=== PATIENT | female | born 1945 | race African-American/Black ===

== ENCOUNTER 2019-09-09 10:10 | Outpatient (CLI) | payer MEDICARE, SELFPAY ==
--- NOTE | ~2019-09-09 | XR_ITS ---
XR knee LT 2V 09/09/2019 10:30 Indication: Left knee pain and edema Procedure: 2 views left knee Comparison: No prior studies for comparison. Findings: There is a left total knee arthroplasty. Moderate joint effusion. No acute fracture or trau matic malalignment. Prosthesis well seated. Impression: 1: No acute fracture. 2: Moderate joint effusion. Reviewed, dictated and finalized at location A. Impression: 1: No acute fracture. 2: Moderate joint effusion.
--- NOTE | ~2019-09-09 | US_ITS ---
EXAMINATION: US venous doppler [facility] DATE: 09/09/2019 10:49 INDICATION: Left lower limb pain and swelling TECHNIQUE: Grayscale ultrasound images without and with compression and Doppler ultrasound images of the left lower extremity veins were obtained. COMPARISON: None. FINDINGS: There is noncompressible deep venous thrombosis in both of the paired left gastrocnemius veins. The v isualized portions of left common femoral vein, profunda (deep) femoral vein, femoral vein, popliteal vein, peroneal veins, posterior tibial veins, and greater saphenous vein outflow are patent. IMPRESSION: 1. [id number] deep venous thrombosis in both of the paired left gastrocnemius veins at the left calf. Reviewed, dictated and finalized at location A. IMPRESSION: 1. [id number] deep venous thrombosis in both of the paired left gastrocnem ius veins at the left calf.
== END 2019-09-09 10:11 | disposition home or self-care (01) ==
LOC: ANHIMG 10:14
PROVIDERS: PCP Family Medicine; Visit Provider Nurse Practitioner Family
DX: R60.9 Edema, unspecified (principal); R09.89 Other specified symptoms and signs involving the circulatory and respiratory systems; M25.562 Pain in left knee; M25.462 Effusion, left knee; I82.463 Acute embolism and thrombosis of calf muscular vein, bilateral
CPT/HCPCS: 73560; 93971

== ENCOUNTER 2019-09-11 23:26 | Emergency (ER) | payer MEDICARE, SELFPAY ==
[2019-09-11 23:30] VITALS: BP 177/83; PULSE 72; RESP 18; TEMP 36; O2SAT 100
--- NOTE | 2019-09-11 23:31 | ED.EXTPRO ---
HPI - Extremity Problem General Chief complaint: Extremity Problem,Nontraumatic Stated complaint: DVT/L knee pain Time Seen by Provider: 09/11/19 23:31 Source: patient Mode of arrival: ambulatory Limitations: no limitations History of Present Illness HPI Narrative: Patient is a 74-year-old female who presents for evaluation of leg swelling and pain. Patient reports that she has had a 5-day history of leg swelling, pain and warmth, was seen in her primary care physician's office by the nurse practitioner, had a DVT study which was positive for a DVT in the left gastrocnemius. Patient was started on anticoagulation by her primary care physician and has been taking this as prescribed. She states she was told if the leg continue to be warm, and red that she should come to the emergency department. Patient denies any cough, chest pain, shortness of breath or hemoptysis. She states she otherwise is feeling well. No wounds or numbness in the leg. She is ambulatory without difficulty. Related Data Allergies Allergy/AdvReac Type Severity Reaction Status Date / Time No Known Allergies Allergy Unknown Unverified 09/09/19 08:51 Review of Systems Review of Systems: Narrative: CONSTITUTIONAL: Denies fever CARDIOVASCULAR: Denies chest pain RESPIRATORY: Denies cough or dyspnea. GASTROINTESTINAL: Denies abdominal pain SKIN: Denies rash MUSCULOSKELETAL: Denies back pain NEUROLOGIC: Denies headache PMFSH Past Medical History Medical History (Updated 09/11/19 @ 23:51 by Amy Wellington MD) DVT (deep venous thrombosis) Hx of pulmonary embolus (~2013) Hyperlipidemia SERGIO on CPAP (~2012) Vital capacity reduced Surgical History Surgical History History of left knee replacement (~2008) Family History Family History (Updated 05/14/18 @ 08:04 by DOCTOR UNKNOWN) Father Acute myocardial infarction, Onset Age: 80 Patient's father is Family history of cardiovascular disease, Onset Age: 81 Sibling Patient's sister is in good health Patient's brother is in good health Mother Family history of Alzheimer's disease, Onset Age: 90 Social History Social History Smoking status: Never smoker Second hand tobacco smoke exposure: No Alcohol intake: never Exam Narrative: Exam Narrative: GENERAL: Awake, alert, conversant HEAD: Normocephalic, atraumatic. EYES: PERRLA and EOMI. ENT: Nares clear, no rhinorrhea or epistaxis. Mucous membranes moist. NECK: Supple. CHEST: No respiratory distress, breathing even and non labored HEART: Regular rate, sinus rhythm ABDOMEN:Non distended, non tender EXTREMITIES: Normal range of motion. Mild, nonpitting left calf edema. Tenderness to palpation behind the knee, effusion over the left knee joint. Mild warmth, no erythema, full flexion and extension without limitation. DP pulse is 1+, posterior tibialis pulses 2+. Capillary refill less than 3 seconds in the toes. SKIN: Warm, dry, no rash. NEURO:No focal deficits. Alert and oriented x3 Course Vital Signs Vital signs: Vital Signs Temperature 36.0 C L 09/11/19 23:30 Pulse Rate 72 09/11/19 23:30 Respiratory Rate 18 09/11/19 23:30 Blood Pressure 177/83 H 09/11/19 23:30 Pulse Oximetry 100 09/11/19 23:30 Temperature 36.0 C L 09/11/19 23:30 Pulse Rate 72 09/11/19 23:30 Respiratory Rate 18 09/11/19 23:30 Blood Pressure 177/83 H 09/11/19 23:30 Pulse Oximetry 100 09/11/19 23:30 MDM - Extremity (Nontraumatic) MDM Narrative Medical decision making narrative: Patient with a known history of DVT, has very recently started anticoagulation. No other concerning features such as chest pain, hemoptysis or shortness of breath. Patient has palpable pulses, her extremity is warm and well-perfused. She has no marked erythema, there is mild warmth overlying the left anterior kne
== END 2019-09-12 00:25 | disposition home or self-care (01) ==
PROVIDERS: Emergency Provider Emergency Medicine; PCP Family Medicine
DX: I82.462 Acute embolism and thrombosis of left calf muscular vein (principal); Z86.718 Personal history of other venous thrombosis and embolism; Z86.711 Personal history of pulmonary embolism; E78.5 Hyperlipidemia, unspecified; G47.33 Obstructive sleep apnea (adult) (pediatric); Z96.652 Presence of left artificial knee joint
CPT/HCPCS: 99281

== ENCOUNTER 2020-01-04 08:14 | Outpatient (CLI) | payer MEDICARE, SELFPAY ==
--- NOTE | ~2020-01-04 | US_ITS ---
EXAMINATION: US venous doppler [facility] EXAM DATE: 01/04/2020 08:45 INDICATION: R60.9 Edema, unspecified, DVT of lower extremity. TECHNIQUE: Multiple grayscale, color flow and Doppler images of the left lower extremity deep venous system obtained and reviewed. Comparison is made to prior examination from 09/09/2019. FINDINGS: LEFT SIDE Common femoral: -------- Normal. Profunda femoral: ------- Normal. Femoral: Normal. Popliteal: Normal. Posterior tibial: --------- Normal. Peroneal: Normal. Gastrocnemius: Paired, both noncompressible, thrombosed. Soleus: Not visualized. Greater saphenous: ----- Normal. Lesser saphenous: ------ Not visualized. There is no significant interval change. IMPRESSION: 1. Persistent left gastrocnemius DVT. Reviewed, dictated and finalized at location A.
== END 2020-01-04 08:15 | disposition home or self-care (01) ==
PROVIDERS: PCP Family Medicine; Visit Provider Family Medicine
DX: R60.9 Edema, unspecified (principal); I82.462 Acute embolism and thrombosis of left calf muscular vein
CPT/HCPCS: 93971

== ENCOUNTER 2020-01-12 15:31 | Emergency (ER) | payer MEDICARE, SELFPAY ==
--- NOTE | ~2020-01-12 | XR_ITS ---
EXAMINATION: XR knee LT 3V DATE: 01/12/2020 16:02 INDICATION: Left knee pain. TECHNIQUE: 3 views of left knee were obtained. COMPARISON: Left knee radiograph 09/09/2019 FINDINGS: There is a total left knee arthroplasty with patellar resurfacing in near-anatomic alignmen t. No fracture. No periprosthetic lucency to suggest loosening or infection. No knee joint effusion. IMPRESSION: 1. Total left knee arthroplasty in near-anatomic alignment. Reviewed, dictated and finalized at location A. OUT WORKER
[2020-01-12 15:33] VITALS: BP 165/81; PULSE 87; RESP 15; TEMP 36.7; O2SAT 100
--- NOTE | 2020-01-12 15:50 | ED.GENADULT ---
HPI - General Adult General Chief complaint: Extremity Injury, Lower Stated complaint: dvt Time Seen by Provider: 01/12/20 15:40 Source: patient History of Present Illness HPI narrative: Patient is a 74 y/o female complaining of left knee since yesterday. She describes her pain as sharp and rates it as 7-8/10. She took Tramadol, which helps her pain. She states that she was diagnosed with DVT in September. She was on Eliquis and it was recently changed to Xarelto. She states the [place] last week still shows she has persistent DVT. She denies any chest pain or SOB. Related Data Allergies Allergy/AdvReac Type Severity Reaction Status Date / Time No Known Allergies Allergy Unknown Unverified 09/09/19 08:51 Review of Systems Constitutional: Constitutional: Denies chills, Denies fever(s), Denies headache(s) and Denies weakness Eyes: Eyes: Denies blurry vision ENT: Denies headache(s) and Denies neck pain Cardiovascular: Cardiovascular: Denies chest pain and Denies dyspnea Respiratory: Respiratory: Denies cough and Denies dyspnea Gastrointestinal: Gastrointestinal: Denies abdominal pain, Denies diarrhea, Denies nausea and Denies vomiting Genitourinary: Genitourinary: Denies hematuria and Denies dysuria Musculoskeletal: Musculoskeletal: Denies back pain, Reports arthralgias (+left knee pain) and Denies neck pain Neurologic: Denies headache(s) and Denies weakness PMFSH Past Medical History Medical History DVT (deep venous thrombosis) Hx of pulmonary embolus (~2013) Hyperlipidemia SERGIO on CPAP (~2012) Vital capacity reduced Surgical History Surgical History History of left knee replacement (~2008) Family History Family History Father Acute myocardial infarction, Onset Age: 80 Patient's father is Family history of cardiovascular disease, Onset Age: 81 Sibling Patient's sister is in good health Patient's brother is in good health Mother Family history of Alzheimer's disease, Onset Age: 90 Social History Social History Smoking status: Never smoker Second hand tobacco smoke exposure: No Alcohol intake: never Gender identity (if verbalized by the patient): Female Exam Const: General: no acute distress and well developed Orientation/consciousness: oriented to person, oriented to place, oriented to time and patient oriented x3 HENMT: Head: normocephalic Ears: external ears normal General nose exam: Normal external nose present Eyes: General: appearance normal, both eyes and all related structures Conjunctivae: conjunctivae normal Neck: Neck: normal visual inspection and full ROM Chest: Chest palpation & inspection: normal inspection of the chest and no tenderness Resp: Effort & Inspection: normal respiratory effort Auscultation: clear to auscultation bilaterally Cardio: Rate: regular rate Rhythm: regular rhythm GI: GI Palp: No abdominal tenderness and Yes Soft to palpation Skin: General skin exam: normal color and turgor normal Neuro: General: oriented to person, oriented to place, oriented to time and patient oriented x3 Cognition (Neuro): normal cognition Extrem: General: normal to inspection, full ROM and no pedal edema Psych: Appearance: grossly normal Mental Status: mental status grossly normal Affect: normal affect Course Consultations Consultation #1: Discussed with Dr. Hernandez (PCP), who agrees with plan for discharge and will follow up. Date: 01/12/20 Time: 16:39 Vital Signs Vital signs: Vital Signs Temperature 36.7 C 01/12/20 15:33 Pulse Rate 87 01/12/20 15:33 Respiratory Rate 15 01/12/20 15:33 Blood Pressure 165/81 H 01/12/20 15:33 Pulse Oximetry 100 01/12/20 15:33 Temperature 36.7 C 01/12/20 15:33 Pulse Rate 85
[2020-01-12 16:20] LABS: Basophils Percent Auto 0.6 % (0.2-1.2); Eosinophils Absolute Auto 0.2 K/mm3 (0-0.3); Eosinophils Percent Auto 2.9 % (0-4.4); Hematocrit 38.4 % (37.0-47.0); Hemoglobin 12.5 g/dL (12.0-15.0); Immature Granulocyte Absolute 0.01 K/mm3 (0.00-0.031); Immature Granulocyte Percent A 0.2 % (0-0.5); Lymphocytes Absolute Auto 2.24 K/mm3 (0.9-3.2); Lymphocytes Percent Auto 43.7 % (18.3-44.2); Mean Corpuscular HGB Conc 32.6 g/dl (32-36); Mean Corpuscular Hemoglobin 26.6 pg (26-34); Mean Corpuscular Volume 81.7 fl (80-100); Mean Platelet Volume 9.5 fl (7.4-10.4); Monocytes Absolute Auto 0.5 K/mm3 (0.1-0.6); Monocytes Percent Auto 9.4 % (2.6-8.5); Neutrophils Absolute Auto 2.2 K/mm3 (1.3-6.7); Neutrophils Percent Auto 43.2 % (45.5-73.1); Platelet Count Result 285 k/mm3 (150-375); Red Cell Distribution Width 13.7 % (11.5-14.5); White Blood Count 5.1 K/mm3 (4.5-10.0)
[2020-01-12 16:30] LABS: Prothrombin Time 13.7 Seconds (11.1-14.7)
[2020-01-12 16:31] LABS: Anion Gap 6 mmol/L (8-16); Blood Urea Nitrogen 13 mg/dL (7-17); Calcium 9.3 mg/dL (8.4-10.2); Carbon Dioxide 28 mmol/L (22-30); Chloride 107 mmol/L (98-107); Estimated CRCL calculation 62 ml/min; Estimated Glomerular Filt Rate > 60; Glucose 77 mg/dL (65-105); Sodium 141 mmol/L (137-145)
[2020-01-12 17:22] VITALS: BP 158/76; PULSE 85; RESP 18; O2SAT 98
== END 2020-01-12 17:24 | disposition home or self-care (01) ==
PROVIDERS: Emergency Provider Emergency Medicine; PCP Family Medicine
DX: M25.562 Pain in left knee (principal); I82.402 Acute embolism and thrombosis of unspecified deep veins of left lower extremity; G47.33 Obstructive sleep apnea (adult) (pediatric); Z86.711 Personal history of pulmonary embolism; Z96.652 Presence of left artificial knee joint; Z79.01 Long term (current) use of anticoagulants
CPT/HCPCS: 36415; 73562; 80048; 85025; 85610; 85730; 99283

== ENCOUNTER 2020-02-10 14:18 | Outpatient (CLI) | payer MEDICARE, SELFPAY ==
--- NOTE | ~2020-02-10 | US_ITS ---
EXAMINATION:US venous doppler LE LT INDICATION:DVT of the left lower extremity TECHNIQUE: Multiple grayscale, color flow and Doppler images of the left lower extremity deep venous systems were obtained and reviewed. COMPARISON: Comparison to multiple prior studies sequentially, with oldest reviewed study dated 09/08. FINDINGS: The common femoral, superficial femoral and popliteal veins demonstrate normal respiratory variation, augmentation and compressibility. Color flow is also seen within the posterior tibial, pe roneal, greater saphenous and profunda veins. There is deep venous thrombosis of the soleus vein. The re is reflux in the posterior tibial vein. IMPRESSION: 1: Deep venous thrombosis in the left soleus vein. Reviewed, dictated and finalized at location B. RACTOR BROOMCORN THRESHING
== END 2020-02-10 14:19 | disposition home or self-care (01) ==
PROVIDERS: PCP Family Medicine; Visit Provider Internal Medicine Hematology & Oncology
DX: I82.4Z2 Acute embolism and thrombosis of unspecified deep veins of left distal lower extremity (principal)
CPT/HCPCS: 93971

== ENCOUNTER 2020-05-17 10:39 | Outpatient (CLI) | payer MEDICARE, SELFPAY ==
--- NOTE | ~2020-05-17 | US_ITS ---
EXAMINATION: US venous doppler [facility] DATE: 05/17/2020 11:06 INDICATION: Acute deep vein thrombosis of distal vein of left lower extremity. TECHNIQUE: Grayscale ultrasound images without and with compression and Doppler ultrasound images of the left lower extremity veins were obtained. COMPARISON: Ultrasound 02/10/2020 FINDINGS: The visualized portions of left common femoral vein, profunda (deep) femoral vein, femoral vein, popl iteal vein, peroneal veins, posterior tibial veins, and greater saphenous vein outflow are patent. Th ere is thrombus in left soleus vein. IMPRESSION: 1. Persistent deep vein thrombosis involving left soleus vein. Reviewed, dictated and finalized at location A. DEVELOPER
== END 2020-05-17 10:40 | disposition home or self-care (01) ==
PROVIDERS: PCP Family Medicine; Visit Provider Internal Medicine Hematology & Oncology
DX: I82.4Z2 Acute embolism and thrombosis of unspecified deep veins of left distal lower extremity (principal)
CPT/HCPCS: 93971

== ENCOUNTER 2020-05-26 13:28 | Outpatient (CLI) | payer MEDICARE, SELFPAY ==
--- NOTE | ~2020-05-26 | DEXA_ITS ---
Bone Density Report Name: Bethany Carnes Age: 74 Sex: Female Ethnicity: White Date of : 1945 Indication: postmenopausal; height loss; Referring Provider: Dick Hernandez Study: Bone densitometry was performed. Exam Date: May 26, 2020 Accession number: [id number] Bone Density: Region BMD T-score Z-score Classification AP Spine (L1-L4) 1.239 1.7 4.0 Normal Femoral Neck (Left) 0.826 -0.2 1.8 Normal Total Hip (Left) 0.849 -0.8 0.9 Normal Total Hip Bilateral Avg 0.850 -0.8 0.9 Normal Femoral Neck (Right) 0.800 -0.4 1.5 Normal Total Hip (Right) 0.850 -0.8 0.9 Normal World Health Organization criteria for BMD impression classify patients as: Normal (T-score at or above -1.0), Osteopenia (T-score between -1.0 and -2.5), or Osteoporosis (T-score at or below -2.5). 10-year Fracture Risk: FRAX not reported because: All T-scores for Spine Total, Hip Total, Femoral Neck at or above -1.0 Clinical Information Provided by Patient: Has used the following medications: Calcium Patient maximum height was 71 Menopause Age: 35 No regular weight bearing exercise Does not regularly consume dairy products Drinks caffeinated beverages Onset of menses at age 16 Number of children 4 Impression: The patient has normal bone mass. Discussion: BONE DENSITY IS ABOVE THE MINIMUM DESIRABLE LEVEL AT ALL SKELETAL SITES TESTED. This patient?s bone mineral density is above the minimum desirable level (T-score -1.0 or better) at all sites measured. The patient should follow a healthful lifestyle (good nutrition with adequate calcium and vitamin D, and appropriate weight-bearing exercise). Follow-Up: Consider repeating this study in 5 years or sooner if there is some new clinical indication. Reported by: LORETTA on 05/26/2020 2:01:00 PM. Reviewed, dictated and finalized at location AGhazala HOLLAND
== END 2020-05-26 13:29 | disposition home or self-care (01) ==
PROVIDERS: PCP Family Medicine; Visit Provider Family Medicine
DX: Z78.0 Asymptomatic menopausal state (principal)
CPT/HCPCS: 77080

== ENCOUNTER 2020-09-15 14:21 | Outpatient (CLI) | payer MEDICARE, SELFPAY ==
--- NOTE | ~2020-09-15 | CT_ITS ---
EXAMINATION: CT abdomen pelvis w con DATE: 09/15/2020 15:20 INDICATION: Left lower quadrant abdominal pain TECHNIQUE: Computed tomography (CT) of the abdomen and pelvis was performed with 100 cc Omnipaque 350 intravenous contrast. Automated exposure control and iterative reconstruction technique were employe d. Exam dose: 646.49 mGy-cm total exam DLP. COMPARISON: None. FINDINGS: Mild bilateral dependent lower lobe atelectasis. Discoid atelectasis or scarring at the med ial segment of the middle lobe. No pericardial or pleural effusion. 6.5 mm hypoattenuating lesion at the inferior tip of the right hepatic lobe, indeterminate, possibly a small cyst. The liver otherwise appears unremarkable. The gallbladder is absent. No bile duct or pancreatic duct dilatation. No pancreatic mass lesion or c alcification. Normal splenic size. Normal morphology of the adrenal glands. Approximately 2-3 mm nonobstructing lower pole right renal calculus. 3 mm lower pole left renal nonobstructing calculus. No urinary tract calculus or hydroureteronephrosi s. There are scattered bilateral renal probable cysts measuring up to 2.2 cm on the right, 1.9 cm on the left. There is moderate diffuse thickening of the urinary bladder wall; exclude cystitis. Status post hyste rectomy. There is extensive atherosclerotic calcification of the abdominal aorta but no abdominal aortic aneur ysm. There is calcification of the iliac and femoral arteries. No intraperitoneal or retroperitoneal or pelvic mass lesion or adenopathy or ascites is evident. Xasg-xi-nkzindlt sliding hiatal hernia. Postoperative change of the stomach likely related to gastric bypass. There is a prominent of fecal material in the rectum and colon but no evidence of bowel obstruction. The appendix is likely surgically absent. Small fat-containing umbilical hernia. No suspicious osteolytic or osteoblastic lesions are noted. IMPRESSION: Bilateral renal cysts, possible 6.5 mm inferior right hepatic cyst Small nonobstructing calculus of lower pole of each kidney Diffuse thickening of the urinary bladder wall; exclude cystitis Status post hysterectomy Status post cholecystectomy and probable appendectomy Postoperative change of the stomach, likely related to gastric bypass Mild to moderate sliding hiatal hernia Reviewed, dictated and finalized at Location A. Reviewed, dictated and finalized at location A.
[2020-09-15 15:16] LABS: Estimated Glomerular Filt Rate > 60
== END 2020-09-15 14:22 | disposition home or self-care (01) ==
PROVIDERS: PCP Family Medicine; Visit Provider Nurse Practitioner
DX: N28.1 Cyst of kidney, acquired (principal); N20.0 Calculus of kidney; Z90.49 Acquired absence of other specified parts of digestive tract; K44.9 Diaphragmatic hernia without obstruction or gangrene
CPT/HCPCS: 74177; Q9967

== ENCOUNTER 2020-09-17 12:14 | Outpatient (CLI) | payer MEDICARE, SELFPAY ==
--- NOTE | ~2020-09-17 | US_ITS ---
EXAMINATION: US venous doppler [facility] DATE: 09/17/2020 12:51 INDICATION: Acute deep vein thrombosis of distal vein of left lower extremity. TECHNIQUE: Grayscale ultrasound images without and with compression and Doppler ultrasound images of the left lower extremity veins were obtained. COMPARISON: Ultrasound 05/17/2020 FINDINGS: The visualized portions of left common femoral vein, profunda (deep) femoral vein, femoral vein, popl iteal vein, peroneal veins, posterior tibial veins, and greater saphenous vein outflow are patent. IMPRESSION: 1. No deep venous thrombosis. Reviewed, dictated and finalized at location A.
== END 2020-09-17 12:15 | disposition home or self-care (01) ==
LOC: ANHIMG 12:18
PROVIDERS: PCP Family Medicine; Visit Provider Internal Medicine Hematology & Oncology
DX: I82.402 Acute embolism and thrombosis of unspecified deep veins of left lower extremity (principal)
CPT/HCPCS: 93971

== ENCOUNTER 2020-09-19 22:35 | Emergency (ER) | payer MEDICARE, SELFPAY ==
--- NOTE | ~2020-09-19 | CT_ITS ---
EXAMINATION: CT abdomen pelvis wo con DATE: 09/20/2020 01:35 INDICATION: Hematuria. Abdominal pain. TECHNIQUE: Computed tomography (CT) of the abdomen and pelvis was performed without intravenous contr ast. Automated exposure control and iterative reconstruction technique were employed. Exam dose: 701 .43 mGy-cm total exam DLP. COMPARISON: 09/15/2020 CT abdomen pelvis FINDINGS: Mild bibasilar atelectasis or scarring, right greater than left, not significantly changed since 09/15/2020. Persistent mild discoid atelectasis or scarring at the medial segment of the middle l obe. Heart size is within normal range. No pericardial or pleural effusion. Oofm-ol-sbgcmzrx sliding hiatal hernia. Postoperative change of the stomach. The gallbladder is surgically absent. Stable 6.5 mm hypoattenuating lesion of the inferior tip of the right hepatic lobe, possibly a small cyst. Normal splenic size. No pancreatic mass lesion, calcification or ductal dilatation. No bile med t dilatation. Normal morphology of the adrenal glands. Bilateral renal cysts are suggested, measuring up to approximately 2 cm on the right 1.7 cm on the le ft. Solid renal space-occupying mass lesion is not excluded on this limited noncontrast examination. Consider CT examination with IV contrast material or MR imaging of the kidneys for more definitive ev aluation. Several nonobstructing bilateral renal calculi are noted. No ureteral calculus or hydroureteronephros is. The urinary bladder is unremarkable. There is atherosclerotic calcification of the abdominal aorta or its no evidence of abdominal aortic aneurysm. No intraperitoneal or retroperitoneal or pelvic mass lesion or adenopathy or ascites. Status post hysterectomy. No bowel obstruction, bowel wall thickening, pneumatosis or intraperitoneal free air. The appendix is not identified. Small fat-containing umbilical hernia. Included skeletal structures are unremarkable. IMPRESSION: Moderately large sliding hiatal hernia Postoperative change of the stomach Status post cholecystectomy Status post appendectomy and hysterectomy Stable 6.5 mm probable cyst of the lower tip of right hepatic lobe Bilateral renal cysts; limited evaluation for solid visceral space-occupying mass lesions without IV contrast material Mild bilateral nonobstructive nephrolithiasis Reviewed, dictated and finalized at Location A. Reviewed, dictated and finalized at location B. IMPRESSION: Moderately large sliding hiatal hernia Postoperative change of the stomach Status post cholecystectomy Status post appendectomy and hysterectomy Stable 6.5 mm probable cyst of the lower tip of right hepatic lobe Bilateral renal cysts; limited evaluation for solid visceral space-occupying ma ss lesions without IV contrast material Mild bilateral nonobstructive nephrolithiasis
[2020-09-19 22:45] VITALS: BP 163/79; PULSE 65; RESP 20; TEMP 36.9; O2SAT 100
[2020-09-19 23:10] LABS: Basophils Absolute Auto 0.1 K/mm3 (0.0-0.1); Basophils Percent Auto 1.2 % (0.2-1.2); Eosinophils Absolute Auto 0.2 K/mm3 (0-0.3); Eosinophils Percent Auto 3.9 % (0-4.4); Hemoglobin 12.4 g/dL (12.0-15.0); Immature Granulocyte Absolute 0.02 K/mm3 (0.00-0.031); Immature Granulocyte Percent A 0.4 % (0-0.5); Lymphocytes Absolute Auto 2.49 K/mm3 (0.9-3.2); Lymphocytes Percent Auto 48.2 % (18.3-44.2); Mean Corpuscular Hemoglobin 24.8 pg (26-34); Mean Corpuscular Volume 80.2 fl (80-100); Mean Platelet Volume 9.3 fl (7.4-10.4); Monocytes Absolute Auto 0.4 K/mm3 (0.1-0.6); Monocytes Percent Auto 7.7 % (2.6-8.5); Neutrophils Percent Auto 38.6 % (45.5-73.1); Platelet Count Result 333 k/mm3 (150-375); Red Blood Count 4.99 M/mm3 (4.2-5.4); Red Cell Distribution Width 15.6 % (11.5-14.5); White Blood Count 5.2 K/mm3 (4.5-10.0)
[2020-09-19 23:23] LABS: Add Urine Microscopic? YES; Alanine Aminotransferase 9 U/L (4-35); Albumin Level 4.3 g/dL (3.5-5.1); Alkaline Phosphatase 53 U/L (38-126); Anion Gap 10 mmol/L (8-16); Appearance Urine Cloudy (Clear); Aspartate Amino Transferase 20 U/L (14-36); Bilirubin Urine Negative (Negative); Bilirubin,Total 0.4 mg/dL (0.2-1.3); Blood Urea Nitrogen 11 mg/dL (7-17); Blood Urine 3+ (Negative); Calcium 9.4 mg/dL (8.4-10.2); Carbon Dioxide 23 mmol/L (22-30); Chloride 107 mmol/L (98-107); Color Urine Red (Yellow); Estimated CRCL calculation 79 ml/min; Estimated Glomerular Filt Rate > 60; Glucose 88 mg/dL (65-105); Glucose Urine UA Negative (Negative); Ketones Urine Negative (Negative); Leukocyte Esterase Ur Negative LEU/UL (Negative); Mucus Urine Rare /lpf; Nitrate Urine Negative (Negative); Potassium 3.7 mmol/L (3.4-5.0); Protein Urine 1+ mg/dL (Negative); RBC Urine >75 /hpf (0-2); Sodium 140 mmol/L (137-145); Specific Grav Ur 1.011 (1.001-1.035); Urobilinogen Urine Negative mg/dL (<2.0)
[2020-09-19 23:47] LABS: INR 0.9; Prothrombin Time 12.2 Seconds (11.1-14.7)
[2020-09-19 23:51] LABS: Partial Thromboplastin Time 25.5 SECONDS (22.3-36.8)
[2020-09-20 00:58] VITALS: BP 164/88; PULSE 65; O2SAT 100
--- NOTE | 2020-09-20 02:22 | ED.GENADULT ---
HPI - General Adult General Chief complaint: Urogenital-Female Stated complaint: blood in urine Time Seen by Provider: 09/20/20 00:56 Source: RN notes reviewed History of Present Illness HPI narrative: Patient presents to emergency department from home for hematuria. Patient states she noted noticed blood in her urine today she states that the urine is red in color states she is able urinate with no difficulty is associated with mild dysuria. Patient states she is on Xarelto for history of blood clots she denies any fever chills chest pain shortness of breath abdominal pain nausea vomiting or any other symptoms Related Data Allergies Allergy/AdvReac Type Severity Reaction Status Date / Time No Known Allergies Allergy Unknown Verified 09/03/20 11:27 Review of Systems Review of Systems: Narrative: Gen.: Denies fevers or chills ENT: Denies congestion Respiratory: Denies shortness of breath or cough CV: Denies chest pain or palpitations GI: Denies abdominal pain nausea, emesis or diarrhea see HPI Musculoskeletal: Denies back pain or muscle pain Neuro: Denies numbness, tingling, weakness or focal weakness Skin: Denies rash Except as documented, all other systems reviewed and negative [facility] Past Medical History Medical History DVT (deep venous thrombosis) Hx of pulmonary embolus (~2013) Hyperlipidemia Sleep apnea Venous thromboembolism (VTE) LLE DVT in August 2019 and PE in 2018 Vitamin B12 deficiency Surgical History Surgical History History of cholecystectomy 1979 History of hysterectomy 1974 History of left knee replacement (~2008) History of sleeve gastrectomy 2017 Family History Family History Father Acute myocardial infarction, Onset Age: 80 Patient's father is Family history of cardiovascular disease, Onset Age: 81 Sibling Patient's sister is in good health Patient's brother is in good health Mother Family history of Alzheimer's disease, Onset Age: 90 Social History Social History Smoking status: Never smoker Second hand tobacco smoke exposure: No Alcohol intake: never Substance use: never Substance use type: does not use Additional living arrangements comments: Daughter Gender identity (if verbalized by the patient): Female Exam Narrative: Exam Narrative: APPEARANCE: No acute distress, nontoxic, resting in bed EYES: EOMI HEENT: Normocephalic, atraumatic, RESPIRATORY: No respiratory distress Clear to auscultation bilaterally with no rhonchi wheezing or rales. CARDIOVASCULAR: Regular rate and rhythm without murmurs rubs or gallops. ABDOMINAL: Soft, nontender, nondistended, no rebound or guarding MUSCULOSKELETAl: Moves all extremities. NEURO: Awake and alert. Following commands, speech normal, no focal deficits SKIN:: Warm, dry. No rashes lesions or abrasions PSYCHIATRIC: Normal affect/mood, Course Course Emergency Course: Called and discussed with Dr. Cuevas presentation work-up at this time feels patient may be discharged recommends 3-day course of antibiotics with Cipro with follow-up as an outpatient Discussed with patient results of workup and diagnosis. Discussed need for follow-up with primary care, proper use of medication, and reasons to return to the emergency department. Patient understands and agrees to current treatment plan Vital Signs Vital signs: Vital Signs Temperature 98.4 F 09/19/20 22:45 Pulse Rate 65 09/19/20 22:45 Respiratory Rate 20 09/19/20 22:45 Blood Pressure 163/79 H 09/19/20 22:45 Pulse Oximetry 100 09/19/20 22:45 Temperature 98.4 F 09/19/20 22:45 Pulse Rate 65 09/20/20 00:58 Respiratory Rate 20 09/19/20 22:45 Blood Pressure 164/88 H 09/20/20 00:58 Pulse Oximetry 10
--- NOTE | 2020-09-20 03:14 | PC.NURSE ---
pt to ED c/o blood in urine since yesterday am. no other complaints.
[2020-09-20] MEDS: CIPROFLOXACIN 500 MG TAB PO (03:15)
[2020-09-20 03:29] VITALS: BP 150/81; PULSE 56; RESP 20; O2SAT 100
== END 2020-09-20 03:30 | disposition home or self-care (01) ==
PROVIDERS: Emergency Provider Emergency Medicine; PCP Family Medicine
DX: R31.9 Hematuria, unspecified (principal); Z79.01 Long term (current) use of anticoagulants; Z86.718 Personal history of other venous thrombosis and embolism; Z86.711 Personal history of pulmonary embolism; E78.5 Hyperlipidemia, unspecified; G47.30 Sleep apnea, unspecified; E53.8 Deficiency of other specified B group vitamins; Z96.652 Presence of left artificial knee joint
CPT/HCPCS: 36415; 74176; 80053; 81001; 85025; 85610; 85730; 87086; 87088; 99284; A9270

== ENCOUNTER 2020-10-13 11:24 | Outpatient (CLI) | payer MEDICARE, SELFPAY ==
--- NOTE | ~2020-10-13 | XR_ITS ---
EXAMINATION: XR abdomen/kub 1V INDICATION: Calcium kidney stone TECHNIQUE: Supine views of the abdomen were obtained on 2 radiographs. COMPARISON: CT, 09/20/2020 FINDINGS: The punctate nephrolithiasis described on recent CT is not definitely seen. There are phleb oliths of the abdomen and pelvis. No definite urolithiasis is identified. A moderate volume of coloni c stool is present. IMPRESSION: 1. No definite urolithiasis identified. Reviewed, dictated and finalized at location A.
== END 2020-10-13 11:25 | disposition home or self-care (01) ==
LOC: ANHIMG 11:26
PROVIDERS: PCP Family Medicine; Visit Provider Urology
DX: N20.0 Calculus of kidney (principal)
CPT/HCPCS: 74018

== ENCOUNTER 2020-10-18 08:48 | Emergency (ER) | payer MEDICARE, SELFPAY ==
--- NOTE | ~2020-10-18 | CT_ITS ---
EXAMINATION: CT abdomen pelvis wo con DATE: 10/18/2020 09:57 INDICATION: Flank pain TECHNIQUE: Computed tomography (CT) of the abdomen and pelvis was performed without intravenous contr ast. Automated exposure control and iterative reconstruction technique were employed. Exam dose: 992 .51 mGy-cm total exam DLP. COMPARISON: 09/20/2020 and 09/15/2020 CT abdomen pelvis. FINDINGS: There is a 3.7 mm right middle nodule. There is mild bibasilar dependent lower lobe atele ctasis. Normal heart size. No pericardial or pleural effusion. The liver, spleen, pancreas, adrenal glands, bile ducts and pancreatic duct are unremarkable. There are bilateral renal cysts and several right and one left punctate nonobstructing renal calculi. No ureteral calculus or hydroureteronephrosis is noted. There is small sliding hiatal hernia. There is postoperative change of the stomach. No bowel obstruct ion is evident. The urinary bladder is unremarkable. Status post hysterectomy. There is nonspecific fluid accumulation around the left ovary and mild fluid accumulation in the cul- de-sac. Consider pelvic ultrasound for further evaluation. There is atherosclerotic calcification of the abdominal aorta and iliac arteries but no aneurysm. No intraperitoneal or retroperitoneal or pelvic mass lesion or adenopathy or ascites is noted. Included skeletal structures are unremarkable. IMPRESSION: Nonspecific fluid accumulation around the left ovary and mild fluid accumulation in the cul-de-sac, new findings since 09/20/2020. Consider pelvic ultrasound examination. Mild bilateral nonobstructive nephrolithiasis Bilateral renal cysts Small sliding hiatal hernia Postoperative change of the stomach Reviewed, dictated and finalized at Location A. Reviewed, dictated and finalized at location A. IMPRESSION: Nonspecific fluid accumulation around the left ovary and mild flui d accumulation in the cul-de-sac, new findings since 09/20/2020. Consider pelvic ultrasound examination. Mild bilateral nonobstructive nephrolithiasis Bilateral renal cysts Small sliding hiatal hernia Postoperative change of the stomach
--- NOTE | ~2020-10-18 | US_ITS ---
EXAMINATION: US pelvic complete DATE: 10/18/2020 12:00 INDICATION: Left adnexal pain. TECHNIQUE: Multiple transabdominal sonographic images of the pelvis were obtained. COMPARISON: CT abdomen and pelvis 10/18/2020 FINDINGS: There is no free fluid in the pelvis. The uterus is absent. The ovaries are not well visualized. IMPRESSION: 1. Ovaries not well visualized. 2. Absent uterus. Reviewed, dictated and finalized at location A.
[2020-10-18 08:55] VITALS: BP 143/80; PULSE 61; RESP 33; TEMP 36.8; O2SAT 98
[2020-10-18 09:33] LABS: Basophils Absolute Auto 0.1 K/mm3 (0.0-0.1); Basophils Percent Auto 0.9 % (0.2-1.2); Eosinophils Absolute Auto 0.2 K/mm3 (0-0.3); Eosinophils Percent Auto 2.7 % (0-4.4); Hematocrit 36.3 % (37.0-47.0); Hemoglobin 11.3 g/dL (12.0-15.0); Immature Granulocyte Absolute 0.02 K/mm3 (0.00-0.031); Immature Granulocyte Percent A 0.3 % (0-0.5); Lymphocytes Absolute Auto 2.08 K/mm3 (0.9-3.2); Lymphocytes Percent Auto 32.6 % (18.3-44.2); Mean Corpuscular HGB Conc 31.1 g/dl (32-36); Mean Corpuscular Hemoglobin 24.6 pg (26-34); Mean Corpuscular Volume 79.1 fl (80-100); Mean Platelet Volume 9.6 fl (7.4-10.4); Monocytes Absolute Auto 0.5 K/mm3 (0.1-0.6); Monocytes Percent Auto 8.5 % (2.6-8.5); Neutrophils Absolute Auto 3.5 K/mm3 (1.3-6.7); Platelet Count Result 301 k/mm3 (150-375); Red Blood Count 4.59 M/mm3 (4.2-5.4); Red Cell Distribution Width 15.4 % (11.5-14.5); White Blood Count 6.4 K/mm3 (4.5-10.0)
[2020-10-18 09:50] LABS: Anion Gap 11 mmol/L (8-16); Blood Urea Nitrogen 12 mg/dL (7-17); Calcium 9.1 mg/dL (8.4-10.2); Carbon Dioxide 21 mmol/L (22-30); Chloride 106 mmol/L (98-107); Estimated CRCL calculation 71 ml/min; Estimated Glomerular Filt Rate > 60; Glucose 112 mg/dL (65-110); Potassium 3.6 mmol/L (3.4-5.0); Sodium 138 mmol/L (137-145)
[2020-10-18 09:53] LABS: Add Urine Microscopic? YES; Appearance Urine Clear (Clear); Bilirubin Urine Negative (Negative); Blood Urine Negative (Negative); Color Urine Yellow (Yellow); Glucose Urine UA Negative (Negative); Ketones Urine Negative (Negative); Leukocyte Esterase Ur Negative LEU/UL (Negative); Mucus Urine Rare /lpf; Nitrate Urine Negative (Negative); Protein Urine 2+ mg/dL (Negative); Specific Grav Ur 1.012 (1.001-1.035); Squamous Epithelial Cell Urine Rare /hpf (Few); Urobilinogen Urine Negative mg/dL (<2.0); WBC Urine 0-3 /hpf
[2020-10-18] MEDS: FAMOTIDINE 20 MG/2 ML VIAL IV PUSH (10:04)
[2020-10-18] MEDS: HYDROmorphone HCL INJ (*CRX) 1 MG/ML SYR IV PUSH (10:07)
[2020-10-18] MEDS: ONDANSETRON INJ 4 MG/2 ML VIAL IV PUSH (10:08)
[2020-10-18] MEDS: SODIUM CHLORIDE 0.9% IV 1,000 ML 999 ML IV CONT (10:21)
[2020-10-18 10:45] VITALS: BP 142/80; PULSE 72; RESP 18; TEMP 36.8; O2SAT 98
--- NOTE | 2020-10-18 12:06 | ED.GENADULT ---
HPI - General Adult General Chief complaint: Abdominal Pain Stated complaint: ABD PAIN Time Seen by Provider: 10/18/20 09:10 Source: patient and RN notes reviewed Mode of arrival: ambulatory Limitations: no limitations History of Present Illness HPI narrative: Patient is 75-year-old female who presents to emergency department for evaluation of abdominal pain left lower abdomen that began acutely this morning is a sharp intense stabbing pain with associated nausea and vomiting patient notes yesterday she had felt fine she denies similar occurrence in the past on arrival she is in the room in no distress resting comfortably Related Data Home Medications Medication Instructions Recorded Confirmed Myrbetriq 25 mg BYMOUTH DAILY 10/18/20 10/18/20 Allergies Allergy/AdvReac Type Severity Reaction Status Date / Time No Known Allergies Allergy Unknown Verified 10/18/20 09:56 Review of Systems Review of Systems: All systems reviewed & are unremarkable except as noted in HPI and below PMFSH Past Medical History Medical History DVT (deep venous thrombosis) Hx of pulmonary embolus (~2013) Hyperlipidemia Sleep apnea Venous thromboembolism (VTE) LLE DVT in August 2019 and PE in 2017 Vitamin B12 deficiency Surgical History Surgical History History of cholecystectomy 1979 History of hysterectomy 1974 History of left knee replacement (~2008) History of sleeve gastrectomy 2017 Family History Family History Father Acute myocardial infarction, Onset Age: 80 Patient's father is Family history of cardiovascular disease, Onset Age: 81 Sibling Patient's sister is in good health Patient's brother is in good health Mother Family history of Alzheimer's disease, Onset Age: 90 Social History Social History Smoking status: Never smoker Second hand tobacco smoke exposure: No Alcohol intake: never Substance use: never Substance use type: does not use Additional living arrangements comments: Daughter Gender identity (if verbalized by the patient): Female Exam Narrative: GENERAL: Well-appearing, well-nourished, uncomfortable and in no acute distress. HEAD: Normocephalic, atraumatic. EYES: PERRLA and EOMI. ENT: Nares clear, no rhinorrhea or epistaxis. Mucous membranes moist. CHEST: Clear to auscultation. No respiratory distress. No wheezes rales or rhonchi HEART: Regular rate and rhythm. No murmur heard. Normal peripheral pulses. ABDOMEN: Soft, left lower abdominal tenderness to palpation, nondistended EXTREMITIES: Normal range of motion. No edema. SKIN: Warm, dry, no rash. NEURO: No focal deficits. Alert and oriented x3. PSYCH: Normal mood and affect. Course Course Emergency Course: Patient in the room at this time aware of case findings treatment plan and diagnosis agreeing to follow-up with primary care as instructed made aware of her case findings treatment plan and diagnosis potentially could have passed a kidney stone unsure as to the exact etiology of her discomfort but she has had marked improvement with pain medication and fluids. Patient has follow-up with urology in the near future and is also been asked to follow-up with primary care she agrees with this plan ABCs and vital signs intact and stable Vital Signs Vital signs: Vital Signs Temperature 98.3 F 10/18/20 08:55 Pulse Rate 61 10/18/20 08:55 Respiratory Rate 33 H 10/18/20 08:55 Blood Pressure 143/80 H 10/18/20 08:55 Pulse Oximetry 98 10/18/20 08:55 Temperature 98.3 F 10/18/20 10:45 Pulse Rate 67 10/18/20 12:28 Respiratory Rate 18 10/18/20 12:28 Blood Pressure 159/91 H 10/18/20 12:28 Pulse Oximetry 98 10/18/20 12:28 Medical Decision Making
[2020-10-18 12:28] VITALS: BP 159/91; PULSE 67; RESP 18; O2SAT 98
[2020-10-18] MEDS: KETOROLAC 30 MG/ML VIAL (*BKC) IV PUSH (13:23)
[2020-10-18 13:29] VITALS: BP 140/73; PULSE 65; RESP 16; O2SAT 95
== END 2020-10-18 13:31 | disposition home or self-care (01) ==
PROVIDERS: Emergency Provider Emergency Medicine; PCP Family Medicine
DX: R10.32 Left lower quadrant pain (principal); E78.5 Hyperlipidemia, unspecified; G47.30 Sleep apnea, unspecified; E53.8 Deficiency of other specified B group vitamins; Z96.652 Presence of left artificial knee joint; Z98.84 Bariatric surgery status; Z86.711 Personal history of pulmonary embolism; Z86.718 Personal history of other venous thrombosis and embolism; N28.1 Cyst of kidney, acquired; K44.9 Diaphragmatic hernia without obstruction or gangrene; R93.89 Abnormal findings on diagnostic imaging of other specified body structures
CPT/HCPCS: 36415; 74176; 76856; 80048; 81001; 85025; 96365; 96375; 99284; J0131; J1170; J1885; J2405; J7030

== ENCOUNTER 2021-05-20 17:14 | Outpatient (CLI) | payer MEDICARE, SELFPAY ==
--- NOTE | ~2021-05-20 | CT_ITS ---
EXAMINATION: CT brain wo con DATE: 05/20/2021 17:38 INDICATION: Head injury with tingling in the left upper extremity TECHNIQUE: Computed tomography (CT) of the head was performed without intravenous contrast. Sagittal and coronal reconstructions were performed. The mA was adjusted according to patient size. Iterative reconstruction technique was employed. The dose-length product was 605.33 mGy-cm. COMPARISON: head CT dated 05/17/2015 FINDINGS: No fracture. No acute intracranial hemorrhage, acute infarction or abnormal extra axial fluid collect ion. Ventricles are normal and symmetric. No mass/mass effect. The orbits, paranasal sinuses and mast oid air cells are normal. IMPRESSION: 1. Normal head CT. Reviewed, dictated and finalized at location A. NURSE IMPRESSION: 1. Normal head CT.
--- NOTE | ~2021-05-20 | CT_ITS ---
EXAMINATION: CT cervical spine wo con DATE: 05/20/2021 17:39 INDICATION: Head injury with tingling of the left upper extremity TECHNIQUE: Computed tomography (CT) of the cervical spine was performed without intravenous contrast. The mA was adjusted according to patient size. Iterative reconstruction technique was employed. The dose-length product was 422.55 mGy-cm. COMPARISON: None FINDINGS: Alignment is normal. Vertebral body heights are normal. No fracture. Moderate disc height loss with m oderate to severe uncovertebral osteoarthritis at C3-C4, C4-C5 and C5-C6. Mild disc height loss at C6 -C7. Disc bulges result in minimal to mild central canal stenosis at each of these levels. Moderate f acet osteoarthritis on the left at C2-C3 and C3-C4 and bilaterally at C7-T1. Severe facet osteoarthri tis bilaterally at T2-T3 and T3-T4 contributing to mild bilateral neural foraminal stenosis at each o f these levels. Additional mild neural foraminal stenosis bilaterally at C3-C4 and on the right at C4 -C5 and C5-C6. There are a few bilateral likely benign subcentimeter thyroid nodules with coarse calc ification at one of the nodules at the inferior left thyroid. Cervical soft tissues are unremarkable. Shortness airway and apices of the lungs are clear. IMPRESSION: 1. Moderate cervical spondylosis. Reviewed, dictated and finalized at location A. [employer]ITION PROFESSOR
== END 2021-05-20 17:15 | disposition home or self-care (01) ==
PROVIDERS: PCP Family Medicine; Visit Provider Nurse Practitioner
DX: S09.90XA Unspecified injury of head, initial encounter (principal); R04.0 Epistaxis; G44.86 Cervicogenic headache
CPT/HCPCS: 70450; 72125

== ENCOUNTER 2021-07-15 06:39 | Emergency (ER) | payer MEDICARE, SELFPAY ==
--- NOTE | ~2021-07-15 | CT_ITS ---
EXAMINATION: CT cervical spine wo con DATE: 07/15/2021 07:07 INDICATION: Neck pain post fall in shower TECHNIQUE: Computed tomography (CT) of the cervical spine was performed without intravenous contrast. Automated exposure control and iterative reconstruction technique were employed. The dose-length pro duct was 372.75 mGy-cm. COMPARISON: 05/20/2021 FINDINGS: Alignment is normal. Vertebral body heights are normal. No fracture. Moderate disc height loss at C3- C4, C4-C5 and C5-C6. Mild disc height loss at C2-C3. There disc bulges at each of these levels result ing in multilevel mild central canal stenosis. There is also mild neural foraminal stenosis on the le ft at C3-C4 and on the right at C3-C4 through C5-C6 resulting from combination of moderate to severe uncovertebral osteoarthritis and mild facet osteoarthritis. Additional moderate facet osteoarthritis bilaterally in the visualized upper thoracic spine as well as on the left at C2-C3 and C3-C4. Multino dular goiter with a few bilateral subcentimeter thyroid nodules with coarse calcific location where t he nodes at the inferior left thyroid. Cervical soft tissues are otherwise unremarkable. Visualized a irway and apices of lungs are clear. IMPRESSION: 1. Moderate cervical spondylosis. No acute osseous abnormality. Reviewed, dictated and finalized at location A.
--- NOTE | ~2021-07-15 | CT_ITS ---
EXAMINATION: CT brain wo con DATE: 07/15/2021 07:07 INDICATION: Head injury with right frontal head pain post fall in shower TECHNIQUE: Computed tomography (CT) of the head was performed without intravenous contrast. Sagittal and coronal reconstructions were performed. The mA was adjusted according to patient size. Iterative reconstruction technique was employed. The dose-length product was 605.33 mGy-cm. COMPARISON: head CT dated 05/20/2021 FINDINGS: Small right frontal scalp hematoma. No no fracture. No acute intracranial hemorrhage, acute infarctio n or abnormal extra axial fluid collection. Ventricles are normal and symmetric. No mass/mass effect. Mild mucosal thickening in the left ethmoid sinus. The orbits and mastoid air cells are normal. IMPRESSION: 1. No fracture or acute intracranial process. Reviewed, dictated and finalized at location A.
[2021-07-15 06:42] VITALS: BP 151/84; PULSE 82; RESP 18; TEMP 36.4; O2SAT 98
--- NOTE | 2021-07-15 07:29 | ED.FALL ---
HPI - Fall General Chief Complaint: Fall Stated Complaint: fall hit head Time Seen by Provider: 07/15/21 06:50 Source: patient and family Mode of arrival: ambulatory Limitations: no limitations History of Present Illness HPI Narrative: 76-year-old female presenting to the emergency department for evaluation of right facial pain after having a fall in the shower. Patient states she slipped causing her to strike her right forehead and eyebrow. Patient denies any loss consciousness. Patient denies any neck pain or back pain. Patient denies any other pain or injury. Patient's only complaint is some right-sided facial pain. Patient denies any change in vision or eye pain. Patient states the fall was not due to near syncope or to lightheadedness. Patient states that it was a mechanical fall. Patient does take an aspirin. Related Data Home Medications Medication Instructions Recorded Confirmed aspirin 325 mg tablet 325 mg PO DAILY 05/16/21 06/20/21 Allergies Allergy/AdvReac Type Severity Reaction Status Date / Time No Known Allergies Allergy Unknown Verified 06/20/21 15:11 Review of Systems Review of Systems: CONSTITUTIONAL: Denies fever, chills, or sweats. EYES: Denies visual changes, redness, or discharge. ENT: Denies rhinorrhea, congestion, sore throat, or otalgia. CARDIOVASCULAR: Denies chest pain, palpitations, or edema. RESPIRATORY: Denies cough or dyspnea. GASTROINTESTINAL: Denies abdominal pain, nausea, vomiting, or diarrhea. GENITOURINARY: Denies dysuria or hematuria. SKIN: Bruising and pain over her right eye MUSCULOSKELETAL: Denies back pain, joint pain, or myalgia. NEUROLOGIC: Denies headache, numbness, or weakness. [facility] Past Medical History Medical History DVT (deep venous thrombosis) Hx of pulmonary embolus (~2013) Hyperlipidemia Sleep apnea Venous thromboembolism (VTE) LLE DVT in August 2019 and PE in 2018 Vitamin B12 deficiency Surgical History Surgical History History of cholecystectomy 1979 History of hysterectomy 1975 History of left knee replacement (~2008) History of sleeve gastrectomy 2017 Family History Family History Father Acute myocardial infarction, Onset Age: 80 Patient's father is Family history of cardiovascular disease, Onset Age: 81 Sibling Patient's sister is in good health Patient's brother is in good health Mother Family history of Alzheimer's disease, Onset Age: 90 Social History Social History Second hand tobacco smoke exposure: No Alcohol intake: never Substance use: never Substance use type: does not use Additional living arrangements comments: Daughter Gender identity (if verbalized by the patient): Female Exam Narrative: APPEARANCE: Well appearing, no pain, no distress, well-nourished. HEAD: normocephalic, contusion over right eyebrow, no laceration, no crepitus. EYES: PERRLA/EOMI, conjunctivae clear. No eye pain with range of motion. No double vision. NOSE: Normal no drainage EARS:TMS clear with good light reflex. THROAT: Pharynx clear, no exudate. NECK: Supple. No adenopathy, no masses. RESPIRATORY: Airway patent, respirations nonlabored. Clear to auscultation bilaterally, no rales, rhonchi, wheezing. CARDIOVASCULAR: Regular rate and rhythm without murmurs rubs or gallops. ABDOMINAL: Soft, nontender, nondistended, normal bowel sounds MUSCULOSKELETAL: Moves all extremities. Strength/ROM intact, No edema, No calf tenderness. NEURO: Alert. Cranial nerves II through XII intact. Grossly intact SKIN: Ecchymosis over right eye Course Course Emergency Course: Patient was updated on the results of her head CT. Patient was able to ambulate in the emergency department without issu
[2021-07-15] MEDS: HYDROcodone/acetaminophen (*CRX) 5-325 MG TABLET 1 TAB PO (07:54)
--- NOTE | 2021-07-15 08:00 | PC.NURSE ---
PT ambulates steady without assistive devices.
[2021-07-15 08:04] VITALS: BP 158/83; PULSE 69; RESP 20; O2SAT 100
== END 2021-07-15 08:43 | disposition home or self-care (01) ==
PROVIDERS: Emergency Provider Emergency Medicine; PCP Family Medicine
DX: S09.90XA Unspecified injury of head, initial encounter (principal); E78.5 Hyperlipidemia, unspecified; G47.30 Sleep apnea, unspecified; E53.8 Deficiency of other specified B group vitamins; Z96.652 Presence of left artificial knee joint; Z98.84 Bariatric surgery status; M47.812 Spondylosis without myelopathy or radiculopathy, cervical region; Z86.711 Personal history of pulmonary embolism; Z86.718 Personal history of other venous thrombosis and embolism; Z79.82 Long term (current) use of aspirin; W18.2XXA Fall in (into) shower or empty bathtub, initial encounter
CPT/HCPCS: 70450; 72125; 99284; A9270

== ENCOUNTER 2021-08-11 10:39 | Outpatient (CLI) | payer MEDICARE, SELFPAY ==
--- NOTE | ~2021-08-11 | CT_ITS ---
EXAMINATION: CT BRAIN W/O DATE: 08/11/2021 10:55 INDICATION: Status post recent fall. Trauma to the head. TECHNIQUE: Computed tomography (CT) of the head was performed without intravenous contrast. The dose- length product was 605.33 mGy-cm. COMPARISON: No prior studies for comparison. FINDINGS: Normal brain parenchymal volume for age. Normal irving-white differentiation. No acute intrac ranial hemorrhage, infarction, mass or mass effect. No ventriculomegaly or midline shift. Midline sagittal images demonstrate a normal corpus callosum, c raniovertebral junction and sella turcica. Basilar cisterns are patent. Paranasal sinuses and mastoids are pneumatized. No depressed skull fractures. IMPRESSION: 1. No acute intracranial abnormality. Reviewed, dictated and finalized at location A.
== END 2021-08-11 10:40 | disposition home or self-care (01) ==
PROVIDERS: PCP Family Medicine; Visit Provider Nurse Practitioner
DX: R51.9 Headache, unspecified (principal)
CPT/HCPCS: 70450

== ENCOUNTER 2022-12-22 00:32 | Day surgery (SDC) | payer MEDICARE, SELFPAY ==
[2022-10-20 10:05] VITALS: BMI 28.1
[2022-12-11 13:59] VITALS: BMI 28.1
[2022-12-22 07:38] VITALS: BP 175/85; PULSE 62; RESP 18; TEMP 36.2; O2SAT 100
--- NOTE | 2022-12-22 07:52 | PM.HPGS ---
History of Present Illness History of Present Illness Consent: Risks, benefits, and alternatives have been discussed and questions answered. Patient agrees to proceed with procedure. Chief complaint: neoplasm screening Narrative: Bethany Carnes is a 77 year old female Presents for screening colonoscopy. Patient's current weight appetite and bowel movements are normal. She denies abdominal pain. Patient has had no bleeding. Family history noncontributory. Previously colonoscopy 10 years ago was reported to be unremarkable. Review of Systems Review of Systems: Review of systems noncontributory. [facility] Past Medical History Medical History DVT (deep venous thrombosis) (~2019) Hx of pulmonary embolus (~2017) Hyperlipidemia Pre-diabetes Sleep apnea Venous thromboembolism (VTE) (~2017) LLE DVT in August 2019 and PE in 2017 Vitamin B12 deficiency Surgical History Surgical History History of cholecystectomy 1979 History of hysterectomy 1974 History of left knee replacement (~2008) History of sleeve gastrectomy 2017 Family History Family History Father Acute myocardial infarction, Onset Age: 80 Patient's father is Family history of cardiovascular disease, Onset Age: 81 Sibling Patient's sister is in good health Patient's brother is in good health Mother Family history of Alzheimer's disease, Onset Age: 90 Social History Social History Smoking status: Never smoker Second hand tobacco smoke exposure: No Alcohol intake: never Substance use: never Substance use type: does not use Lack of Transportation: No Lack of Food: Never True Current Housing: I Have Housing Concerned About Future Housing: No Difficulty Paying Gas/Electric Bills: No Difficulty Paying for Meds: No Currently Unemployed: No Education: High School Diploma/GED Difficulty w/ Childcare or Family Care: No Living arrangements: with family Additional living arrangements comments: Daughter Occupation/Education: retired Gender identity (if verbalized by the patient): Female Spiritual care concerns: No Agree to blood products: Yes Meds Home Medications and Allergies Home Medications Medication Instructions Recorded Confirmed Type acetaminophen 650 mg 650 mg PO Q12H PRN pain #10 tabs 10/18/20 12/11/22 Rx tablet,extended release (Tylenol Arthritis Pain) aspirin 325 mg tablet 325 mg PO DAILY 05/16/21 12/11/22 History multivitamin (Multiple Vitamins 1 tablet PO DAILY 08/22/21 12/11/22 History tablet) naproxen 500 mg tablet 500 mg PO BID PRN pain #60 tabs 08/22/21 12/11/22 Rx omeprazole 40 mg capsule,delayed 40 mg PO DAILY #90 caps 09/18/22 12/11/22 Rx release atorvastatin 10 mg tablet 10 mg PO DAILY #90 tabs 10/04/22 12/11/22 Rx cholecalciferol (vitamin D3) 50 50 mcg PO DAILY #90 tabs 10/04/22 12/11/22 Rx mcg (2,000 unit) tablet Allergies Allergy/AdvReac Type Severity Reaction Status Date / Time No Known Allergies Allergy Unknown Verified 12/11/22 13:58 Vital Signs Vital Signs - 24 hr 12/22/22 07:38 Temperature 97.2 F L Pulse Rate 62 Respiratory Rate 18 Blood Pressure 175/85 H Pulse Oximetry 100 Oxygen Delivery Room Air Exam Narrative: Physical exam reveals patient to be alert. Vital signs stable. HEENT exam is unremarkable. Patient is anicteric. Lungs are clear to auscultation and percussion. Heart is without murmur or extra sounds. Abdomen bowel sounds are present soft nontender with no organomegaly. Digital external rectal exam is normal. Assessment and Plan Assessment and plan (1) Encounter for screening colonoscopy: Code(s): Z12.11 - Encounter for screening for maligna
--- NOTE | 2022-12-22 07:52 | WPDANESEPPF ---
Anes - Initial Pre Proc Eval Procedure: Operation Date: 12/22/22 08:30 Proposed Procedures p Screening Colonoscopy - Diomedes Crooks MD Date/Time: 12/22/22 07:52 Surgeon: Diomedes Crooks MD Pre Op Diagnosis: neoplasm screening Patient Data Age: 77 Gender: F Height: 1.78 m Weight: 93 kg Last Vital Signs Temp 97.2 F L 12/22/22 07:38 Pulse 62 12/22/22 07:38 Resp 18 12/22/22 07:38 BP 175/85 H 12/22/22 07:38 Pulse Ox 100 12/22/22 07:38 O2 Del Method Room Air 12/22/22 07:38 Allergies Allergy/AdvReac Type Severity Reaction Status Date / Time No Known Allergies Allergy Unknown Verified 12/11/22 13:58 Home Medications Medication Instructions Recorded Confirmed Type acetaminophen 650 mg 650 mg PO Q12H PRN pain #10 tabs 10/18/20 12/11/22 Rx tablet,extended release (Tylenol Arthritis Pain) aspirin 325 mg tablet 325 mg PO DAILY 05/16/21 12/11/22 History multivitamin (Multiple Vitamins 1 tablet PO DAILY 08/22/21 12/11/22 History tablet) naproxen 500 mg tablet 500 mg PO BID PRN pain #60 tabs 08/22/21 12/11/22 Rx omeprazole 40 mg capsule,delayed 40 mg PO DAILY #90 caps 09/18/22 12/11/22 Rx release atorvastatin 10 mg tablet 10 mg PO DAILY #90 tabs 10/04/22 12/11/22 Rx cholecalciferol (vitamin D3) 50 50 mcg PO DAILY #90 tabs 10/04/22 12/11/22 Rx mcg (2,000 unit) tablet Patient hx anesthesia problems: none Family hx anesthesia problems: none Results Review: All pre-operative results and documents have been reviewed as part of the pre-operative evaluation. [facility] Past Medical History Medical History DVT (deep venous thrombosis) (~2019) Hx of pulmonary embolus (~2017) Hyperlipidemia Pre-diabetes Sleep apnea Venous thromboembolism (VTE) (~2017) LLE DVT in August 2019 and PE in 2017 Vitamin B12 deficiency Surgical History Surgical History History of cholecystectomy 1979 History of hysterectomy 1975 History of left knee replacement (~2008) History of sleeve gastrectomy 2018 Family History Family History Father Acute myocardial infarction, Onset Age: 80 Patient's father is Family history of cardiovascular disease, Onset Age: 81 Sibling Patient's sister is in good health Patient's brother is in good health Mother Family history of Alzheimer's disease, Onset Age: 90 Social History Social History Smoking status: Never smoker Second hand tobacco smoke exposure: No Alcohol intake: never Substance use: never Substance use type: does not use Lack of Transportation: No Lack of Food: Never True Current Housing: I Have Housing Concerned About Future Housing: No Difficulty Paying Gas/Electric Bills: No Difficulty Paying for Meds: No Currently Unemployed: No Education: High School Diploma/GED Difficulty w/ Childcare or Family Care: No Living arrangements: with family Additional living arrangements comments: Daughter Occupation/Education: retired Gender identity (if verbalized by the patient): Female Spiritual care concerns: No Agree to blood products: Yes Anes - Eval Final PreProcedure Day of Procedure 12/22/22 07:52 Patient weight: normal Heart: regular rate and rhythm Lungs: clear to auscultation Airway: Mallampati scale class II Neurological: alert and oriented Last oral intake: >/= 8 hours ASA classification: III Emergent: no Anesthetic plan: proceed Anesthesia type and monitoring: general GIVS and standard monitoring Results Review: All pre-operative results and documents have been reviewed as part of the pre-operative evaluation. Informed Consent: The patient's anesthetic plan and its attendant risks and benefits were discussed with the patient/
[2022-12-22] MEDS: LACTATED RINGERS 1,000 ML 150 ML IV CONT (08:01)
[2022-12-22 08:56] VITALS: BP 154/82; PULSE 63; RESP 18; O2SAT 100
[2022-12-22 09:06] VITALS: BP 133/85; PULSE 68; RESP 19; O2SAT 100
[2022-12-22 09:16] VITALS: BP 146/73; PULSE 50; RESP 16; O2SAT 100
== END 2022-12-22 09:22 | disposition home or self-care (01) ==
PROVIDERS: PCP Family Medicine; Visit Provider Internal Medicine Gastroenterology
PROC: 0DJD8ZZ Inspection of Lower Intestinal Tract, Via Natural or Artificial Opening Endoscopic (ICD-10-PCS; CPT 45378; principal; 2022-12-22 08:30)
DX: Z12.11 Encounter for screening for malignant neoplasm of colon (principal); D12.0 Benign neoplasm of cecum; D12.5 Benign neoplasm of sigmoid colon; E78.5 Hyperlipidemia, unspecified; R73.03 Prediabetes; G47.30 Sleep apnea, unspecified; Z86.711 Personal history of pulmonary embolism; Z86.718 Personal history of other venous thrombosis and embolism; Z98.84 Bariatric surgery status
CPT/HCPCS: 45385; 88305; 88342; J2704; J7120

== ENCOUNTER 2023-03-26 10:34 | Outpatient (CLI) | payer MEDICARE, SELFPAY ==
[2023-03-26 19:19] LABS: Basophils Absolute Auto 0.1 K/mm3 (0.0-0.1); Basophils Percent Auto 1.2 % (0.2-1.2); Eosinophils Absolute Auto 0.2 K/mm3 (0-0.3); Eosinophils Percent Auto 4.1 % (0-4.4); Hematocrit 40.4 % (37.0-47.0); Hemoglobin 12.1 g/dL (12.0-15.0); Immature Granulocyte Absolute 0.02 K/mm3 (0.00-0.031); Immature Granulocyte Percent A 0.4 % (0-0.5); Lymphocytes Absolute Auto 1.98 K/mm3 (0.9-3.2); Lymphocytes Percent Auto 38.4 % (18.3-44.2); Mean Corpuscular Hemoglobin 24.7 pg (26-34); Mean Corpuscular Volume 82.4 fl (80-100); Mean Platelet Volume 10.6 fl (7.4-10.4); Monocytes Absolute Auto 0.5 K/mm3 (0.1-0.6); Monocytes Percent Auto 9.5 % (2.6-8.5); Neutrophils Absolute Auto 2.4 K/mm3 (1.3-6.7); Neutrophils Percent Auto 46.4 % (45.5-73.1); Platelet Count Result 338 k/mm3 (150-375); Red Cell Distribution Width 15.2 % (11.5-14.5); White Blood Count 5.2 K/mm3 (4.5-10.0)
[2023-03-26 19:28] LABS: Alanine Aminotransferase 12 U/L (6-35); Albumin Level 3.6 g/dL (3.5-5.1); Alkaline Phosphatase 67 U/L (38-126); Anion Gap 6 mmol/L (8-16); Aspartate Amino Transferase 23 U/L (14-36); Bilirubin,Total 0.3 mg/dL (0.2-1.3); Blood Urea Nitrogen 11 mg/dL (7-17); Calcium 9.2 mg/dL (8.4-10.2); Carbon Dioxide 29 mmol/L (22-30); Chloride 105 mmol/L (98-107); Estimated Glomerular Filt Rate > 60; Glucose 76 mg/dL (65-110); Potassium 4.3 mmol/L (3.4-5.0); Sodium 140 mmol/L (137-145)
[2023-03-26 19:41] LABS: Hemoglobin A1C 5.9 % (<5.7)
== END 2023-03-26 10:35 | disposition home or self-care (01) ==
LOC: ANHGOSHLAB 10:36
PROVIDERS: PCP Family Medicine; Visit Provider Family Medicine
DX: D72.819 Decreased white blood cell count, unspecified (principal); R73.03 Prediabetes; E78.5 Hyperlipidemia, unspecified
CPT/HCPCS: 36415; 80053; 83036; 85025

== ENCOUNTER 2023-04-27 06:45 | Day surgery (SDC) | payer MEDICARE, SELFPAY ==
[2023-04-03 15:03] VITALS: BMI 27.3
--- NOTE | 2023-04-25 14:30 | SUR.PREOP ---
Patient called regarding upcoming procedure. Reviewed preop instructions, appointment times, and procedure prep.
--- NOTE | 2023-04-26 13:56 | PM.HPGS ---
History of Present Illness History of Present Illness Consent: Risks, benefits, and alternatives have been discussed and questions answered. Patient agrees to proceed with procedure. Chief complaint: History colon polyp Narrative: Bethany Carnes is a 77 year old female Referred for colon cancer screening. Her last colonoscopy was 10 years ago. At that time I had removed a couple of polyps. Review of Systems Review of Systems: All systems reviewed & are unremarkable except as noted in HPI and below PMFSH Past Medical History Medical History DVT (deep venous thrombosis) (~2019) GERD without esophagitis Hx of pulmonary embolus (~2017) Hyperlipidemia Pre-diabetes Sleep apnea Tubular adenoma of colon (~12/2022) Venous thromboembolism (VTE) (~2017) LLE DVT in August 2019 and PE in 2017 Vitamin B12 deficiency Surgical History Surgical History History of cholecystectomy 1979 History of hysterectomy 1974 History of left knee replacement (~2008) History of sleeve gastrectomy 2017 Family History Family History Father Acute myocardial infarction, Onset Age: 80 Patient's father is Family history of cardiovascular disease, Onset Age: 81 Sibling Patient's sister is in good health Patient's brother is in good health Mother Family history of Alzheimer's disease, Onset Age: 90 Social History Social History Smoking status: Never smoker Second hand tobacco smoke exposure: No Alcohol intake: never Substance use: never Substance use type: does not use Lack of Transportation: No Lack of Food: Never True Current Housing: I Have Housing Concerned About Future Housing: No Difficulty Paying Gas/Electric Bills: No Difficulty Paying for Meds: No Currently Unemployed: No Education: High School Diploma/GED Difficulty w/ Childcare or Family Care: No Living arrangements: with family Additional living arrangements comments: Daughter Occupation/Education: retired Gender identity (if verbalized by the patient): Female Spiritual care concerns: No Agree to blood products: Yes Meds Home Medications and Allergies Home Medications Medication Instructions Recorded Confirmed Type aspirin 325 mg tablet 325 mg PO DAILY 05/16/21 04/18/23 History multivitamin (Multiple Vitamins 1 tablet PO DAILY 08/22/21 04/18/23 History tablet) atorvastatin 10 mg tablet 10 mg PO DAILY #90 tabs 10/04/22 04/18/23 Rx cholecalciferol (vitamin D3) 50 50 mcg PO DAILY #90 tabs 10/04/22 04/18/23 Rx mcg (2,000 unit) tablet omeprazole 40 mg capsule,delayed 40 mg PO DAILY #90 caps 02/07/23 04/18/23 Rx release fluticasone propionate 50 2 spray intranasal DAILY #16 grams 03/15/23 04/18/23 Rx mcg/actuation nasal spray,suspension (Flonase Allergy Relief) gabapentin 100 mg capsule 100 mg PO BID #60 caps 04/18/23 04/18/23 Rx Allergies Allergy/AdvReac Type Severity Reaction Status Date / Time No Known Allergies Allergy Unknown Verified 04/27/23 10:05 Exam Const: General: alert Orientation/consciousness: patient oriented x3 Resp: Auscultation: clear to auscultation bilaterally Cardio: Rhythm: regular rhythm GI: GI Palp: Yes Soft to palpation and No Tenderness to palpation present (GI) Neuro: General: patient oriented x3 Assessment and Plan Assessment and plan (1) Encounter for screening colonoscopy: Code(s): Z12.11 - Encounter for screening for malignant neoplasm of colon Status: Acute Assessment and Plan: Colonoscopy with possible biopsy or polypectomy or cautery or injection of substances.
[2023-04-27 10:06] VITALS: BP 143/75; PULSE 68; RESP 18; TEMP 36.1; O2SAT 100
[2023-04-27] MEDS: LACTATED RINGERS 1,000 ML 150 ML IV CONT (10:19)
--- NOTE | 2023-04-27 10:36 | WPDANESEPPF ---
Anes - Initial Pre Proc Eval Procedure: Operation Date: 04/27/23 11:30 Proposed Procedures p Colonoscopy - Terrance Bernal MD Date/Time: 04/27/23 10:36 Surgeon: Terrance Bernal MD Pre Op Diagnosis: History colon polyp Patient Data Age: 77 Gender: F Height: 1.8 m Weight: 92.5 kg Last Vital Signs Temp 97 F L 04/27/23 10:06 Pulse 68 04/27/23 10:06 Resp 18 04/27/23 10:06 BP 143/75 H 04/27/23 10:06 Pulse Ox 100 04/27/23 10:06 O2 Del Method Room Air 04/27/23 10:06 Allergies Allergy/AdvReac Type Severity Reaction Status Date / Time No Known Allergies Allergy Unknown Verified 04/27/23 10:05 Home Medications Medication Instructions Recorded Confirmed Type aspirin 325 mg tablet 325 mg PO DAILY 05/16/21 04/18/23 History multivitamin (Multiple Vitamins 1 tablet PO DAILY 08/22/21 04/18/23 History tablet) atorvastatin 10 mg tablet 10 mg PO DAILY #90 tabs 10/04/22 04/18/23 Rx cholecalciferol (vitamin D3) 50 50 mcg PO DAILY #90 tabs 10/04/22 04/18/23 Rx mcg (2,000 unit) tablet omeprazole 40 mg capsule,delayed 40 mg PO DAILY #90 caps 02/07/23 04/18/23 Rx release fluticasone propionate 50 2 spray intranasal DAILY #16 grams 03/15/23 04/18/23 Rx mcg/actuation nasal spray,suspension (Flonase Allergy Relief) gabapentin 100 mg capsule 100 mg PO BID #60 caps 04/18/23 04/18/23 Rx Patient hx anesthesia problems: none Family hx anesthesia problems: none Results Review: All pre-operative results and documents have been reviewed as part of the pre-operative evaluation. [facility] Past Medical History Medical History DVT (deep venous thrombosis) (~2019) GERD without esophagitis Hx of pulmonary embolus (~2017) Hyperlipidemia Pre-diabetes Sleep apnea Tubular adenoma of colon (~12/2022) Venous thromboembolism (VTE) (~2017) LLE DVT in August 2019 and PE in 2017 Vitamin B12 deficiency Surgical History Surgical History History of cholecystectomy 1979 History of hysterectomy 1974 History of left knee replacement (~2008) History of sleeve gastrectomy 2018 Family History Family History Father Acute myocardial infarction, Onset Age: 80 Patient's father is Family history of cardiovascular disease, Onset Age: 81 Sibling Patient's sister is in good health Patient's brother is in good health Mother Family history of Alzheimer's disease, Onset Age: 90 Social History Social History Smoking status: Never smoker Second hand tobacco smoke exposure: No Alcohol intake: never Substance use: never Substance use type: does not use Lack of Transportation: No Lack of Food: Never True Current Housing: I Have Housing Concerned About Future Housing: No Difficulty Paying Gas/Electric Bills: No Difficulty Paying for Meds: No Currently Unemployed: No Education: High School Diploma/GED Difficulty w/ Childcare or Family Care: No Living arrangements: with family Additional living arrangements comments: Daughter Occupation/Education: retired Gender identity (if verbalized by the patient): Female Spiritual care concerns: No Agree to blood products: Yes Anes - Eval Final PreProcedure Day of Procedure 04/27/23 10:36 Patient weight: normal Heart: regular rate and rhythm Lungs: clear to auscultation Airway: Mallampati scale class II Neurological: alert and oriented Last oral intake: >/= 8 hours ASA classification: III Emergent: no Anesthetic plan: proceed Anesthesia type and monitoring: general GIVS and standard monitoring Results Review: All pre-operative results and documents have been reviewed as part of the pre-operative evaluation. Informed Consent: The patient's anesthetic pl
[2023-04-27 11:34] VITALS: BP 130/87; PULSE 62; RESP 16; O2SAT 100
[2023-04-27 11:44] VITALS: BP 156/91; PULSE 57; RESP 20; O2SAT 100
[2023-04-27 11:54] VITALS: BP 169/91; PULSE 60; RESP 14; O2SAT 99
== END 2023-04-27 12:03 | disposition home or self-care (01) ==
PROVIDERS: PCP Family Medicine; Visit Provider Internal Medicine Gastroenterology
PROC: 0DJD8ZZ Inspection of Lower Intestinal Tract, Via Natural or Artificial Opening Endoscopic (ICD-10-PCS; CPT 45378; principal; 2023-04-27 11:30)
DX: Z09 Encounter for follow-up examination after completed treatment for conditions other than malignant neoplasm (principal); K64.8 Other hemorrhoids; Z86.010 Personal history of colon polyps; E78.5 Hyperlipidemia, unspecified; G47.30 Sleep apnea, unspecified; K21.9 Gastro-esophageal reflux disease without esophagitis; R73.03 Prediabetes; Z86.718 Personal history of other venous thrombosis and embolism; Z86.711 Personal history of pulmonary embolism; Z98.84 Bariatric surgery status; Z79.82 Long term (current) use of aspirin
CPT/HCPCS: 45378; J2704; J7120

== ENCOUNTER 2023-04-30 09:17 | Outpatient (CLI) | payer MEDICARE, SELFPAY ==
--- NOTE | ~2023-04-30 | MMUS_ITS ---
EXAMINATION: MM diagnostic aicha BI w deana, US breast LT complete HISTORY: Left breast burning sensation TECHNIQUE: Additional 3-D tomosynthesis images of the breasts were performed and synthetic 2-D images were generated. CAD analysis was submitted and interpreted. High resolution left complete breast ult rasound was performed. COMPARISON: None BREAST PARENCHYMAL COMPOSITION: Not dense: There are scattered areas of fibroglandular density. FINDINGS: MAMMOGRAPHIC FINDINGS: There are no suspicious masses, calcifications or architectural distortion in either breast to sugges t malignancy. ULTRASOUND: Complete US of all 4 quadrants of the left breast and retroareolar region was reviewed. At 4:00, 5 cm from the nipple, there is a hyperechoic 4 mm mass, likely benign. No significant posterior features or internal vascularity. No other masses identified. IMPRESSION: 1. Probable benign 4 mm hyperechoic left breast mass at 4:00, 5 cm from the nipple. 2. Recommend 6 month follow-up Limited left breast ultrasound BI-RADS category 3, probably benign findings. Reviewed, dictated and finalized at location A. TENDER IMPRESSION: 1. Probable benign 4 mm hyperechoic left breast mass at 4:00, 5 cm from the nip ple. 2. Recommend 6 month follow-up Limited left breast ultrasound BI-RADS category 3, probably benign findings.
== END 2023-04-30 09:18 | disposition home or self-care (01) ==
LOC: CHSIMG 09:18
PROVIDERS: PCP Family Medicine; Visit Provider Nurse Practitioner Family
DX: N64.4 Mastodynia (principal); R92.8 Other abnormal and inconclusive findings on diagnostic imaging of breast
CPT/HCPCS: 76641; 77062; 77066; G0279

== ENCOUNTER 2023-07-31 10:07 | Outpatient (CLI) | payer MEDICARE, SELFPAY ==
--- NOTE | ~2023-07-31 | XR_ITS ---
XR hip LT 2V w AP pelvis DATE: 07/31/2023 10:43 INDICATION: Left hip pain TECHNIQUE: AP pelvis. AP and lateral views of the left hip COMPARISON: None FINDINGS: No fracture or dislocation, avascular necrosis or bone destruction of the left hip. Hip jeremy nt spaces are symmetric and relatively well preserved. Normal alignment of the pubic symphysis and sacroiliac joints. No pelvic fracture or bone destruction is detected. IMPRESSION: No significant abnormality Reviewed, dictated and finalized at location B. IMPRESSION: No significant abnormality
== END 2023-07-31 10:08 ==
PROVIDERS: PCP Family Medicine; Visit Provider Family Medicine
DX: M25.552 Pain in left hip (principal); R10.32 Left lower quadrant pain
CPT/HCPCS: 73502

== ENCOUNTER 2023-09-10 16:57 | Emergency (ER) | payer MEDICARE, SELFPAY ==
--- NOTE | ~2023-09-10 | CT_ITS ---
Acute EXAMINATION: CT abd pelvis lumbar wo con DATE: 09/10/2023 20:09 INDICATION: left flank pain TECHNIQUE: Computed tomography (CT) of the abdomen and pelvis and lumbar spine was performed without intravenous contrast. Automated exposure control and iterative reconstruction technique were employed . The dose-length product was 788.18 mGy-cm. COMPARISON: 10/18/2020. FINDINGS: Lower thorax: Right basilar scarring. Minimal coronary artery calcification. Liver: Normal. Biliary/Gallbladder: Gallbladder is normal. No bile duct dilation. Pancreas: No mass or duct dilation. Spleen: Normal. Adrenals:No mass. Kidneys: No suspicious mass, obstructing stone, or hydronephrosis. Multiple simple bilateral cysts. M ultiple punctate nonobstructing bilateral calcifications. GI tract: Small hiatal hernia. Prior gastric surgery. No small or large bowel dilation. The appendix is not confidently identified. Mesentery/Peritoneum: No ascites, mass, or free air. Retroperitoneum: No mass. Pelvis: Mild urinary bladder wall thickening. Absent uterus. Normal bilateral ovaries.. Soft Tissues: Soft tissues and body wall unremarkable. Bones (excluding spine): No acute osseous finding. Degenerative changes in the SI joints, greater on the right. Lumbar Spine: 5 nonrib-bearing lumbar-type vertebral bodies. Pedicles intact. Normal vertebral body a lignment. Vertebral body heights preserved. Multilevel mild lumbar degenerative disc disease. Multile ac moderate facet arthropathy. No severe central canal or neural foraminal narrowing. IMPRESSION: No acute process detected in the abdomen, pelvis, or lumbar spine. Reviewed, dictated and finalized at location K.
[2023-09-10 17:04] VITALS: BP 150/89; PULSE 71; RESP 18; TEMP 36.5; O2SAT 99
--- NOTE | 2023-09-10 19:05 | ED.BACK ---
HPI - Back Pain/Injury General Chief Complaint: Back Pain/Injury Stated Complaint: flank and back pain Time Seen by Provider: 09/10/23 18:53 History of Present Illness HPI Narrative: Patient is a 78 year old female with history of GERD, sciatica here with lower back pain. She states that the lower back pain began for the 1st time a few months ago with no preceding trauma. She states that it has always been located on the left side. She had been told by her primary care doctor that it sounded like sciatic up. She lost her primary care doctor little over a month ago for similar symptoms. This was also located on the left side and radiated into her left leg. She had been started on Flexeril and a Medrol Dosepak by her primary care doctor and had been feeling somewhat improved over the last couple of weeks until 3 days ago when the symptoms returned. She notes that it is located as a band sensation along her lower back and radiates down into her left groin and left leg. She denies any numbness or weakness. Pain significantly worse with any movement of her lower back and she has difficulty standing, walking, lying flat. She did attempt to take a dose of Flexeril last night, does not believe it helped with her pain, states that just made her fall asleep. She denies any trauma. She denies any bowel or bladder incontinence, no saddle anesthesia. No fever or chills. No dysuria, hematuria. She has never had any imaging of her lower back but has had imaging of her left hip which was grossly normal. Related Data Home Medications Medication Instructions Recorded Confirmed aspirin 325 mg tablet 325 mg PO DAILY 05/16/21 07/31/23 multivitamin (Multiple Vitamins 1 tablet PO DAILY 08/22/21 07/31/23 tablet) Allergies Allergy/AdvReac Type Severity Reaction Status Date / Time No Known Allergies Allergy Unknown Verified 09/10/23 17:38 Review of Systems Review of Systems: All systems reviewed & are unremarkable except as noted in HPI and below [facility] Past Medical History Medical History DVT (deep venous thrombosis) (~2019) GERD without esophagitis Hx of pulmonary embolus (~2017) Hyperlipidemia Pre-diabetes Sleep apnea Tubular adenoma of colon (~12/2022) Venous thromboembolism (VTE) (~2017) LLE DVT in August 2019 and PE in 2018 Vitamin B12 deficiency Surgical History Surgical History History of cholecystectomy 1979 History of hysterectomy 1974 History of left knee replacement (~2008) History of sleeve gastrectomy 2017 Family History Family History Father Acute myocardial infarction, Onset Age: 80 Patient's father is Family history of cardiovascular disease, Onset Age: 81 Sibling Patient's sister is in good health Patient's brother is in good health Mother Family history of Alzheimer's disease, Onset Age: 90 Social History Social History Smoking status: Former smoker Second hand tobacco smoke exposure: No Alcohol intake: never Substance use: never Substance use type: does not use Lack of Transportation: No Lack of Food: Never True Current Housing: I Have Housing Concerned About Future Housing: No Difficulty Paying Gas/Electric Bills: No Difficulty Paying for Meds: No Currently Unemployed: No Education: High School Diploma/GED Difficulty w/ Childcare or Family Care: No Living arrangements: with family Additional living arrangements comments: Daughter Occupation/Education: retired Gender identity (if verbalized by the patient): Female Spiritual care concerns: No Agree to blood products: Yes Exam Narrative: GENERAL: Well-appearing, well-nourished, and in no acute distress. HEAD: Normocephalic, atraumatic. EYES: PERR
[2023-09-10] MEDS: KETOROLAC 30 MG/ML VIAL (*BKC) 15 MG IM (20:01)
[2023-09-10] MEDS: HYDROcodone/acetaminophen (*CRX) 5-325 MG TABLET 1 TAB PO (20:01)
[2023-09-10 21:10] LABS: Appearance Urine Clear (Clear); Bilirubin Urine Negative (Negative); Blood Urine Negative (Negative); Color Urine Yellow (Yellow); Glucose Urine UA Negative (Negative); Ketones Urine Negative (Negative); Leukocyte Esterase Ur Negative LEU/UL (Negative); Nitrate Urine Negative (Negative); Protein Urine Negative (Negative); Specific Grav Ur 1.011 (1.001-1.035)
[2023-09-10 21:16] LABS: Add Urine Microscopic? NO
== END 2023-09-10 21:47 | disposition home or self-care (01) ==
PROVIDERS: Emergency Provider Student in an Organized Health Care Education/Training Program; PCP Family Medicine
DX: S39.012A Strain of muscle, fascia and tendon of lower back, initial encounter (principal); M54.30 Sciatica, unspecified side; E78.5 Hyperlipidemia, unspecified; Z87.891 Personal history of nicotine dependence; X58.XXXA Exposure to other specified factors, initial encounter
CPT/HCPCS: 72131; 74176; 81003; 96372; 99284; A9270; J1885

== ENCOUNTER 2023-11-20 08:58 | Outpatient (CLI) | payer MEDICARE, SELFPAY ==
--- NOTE | ~2023-11-20 | US_ITS ---
EXAMINATION TYPE: US breast LT limited COMPARISON: 04/30/2023 REASON FOR STUDY: N64.4 - Mastodynia TECHNIQUE: Targeted sonographic evaluation of the right breast 4:00 position, 5 cm from the nipple wa s performed. INTERPRETATION: No solid or cystic lesion identified. Small hyperechoic lesion seen on prior exam no longer visualize d. No sonographic abnormality seen in the region scanned. IMPRESSION: No sonographic abnormality seen in the region scanned. BI-RADS CATEGORY: BI-RADS 1: Normal Reviewed, dictated and finalized at location M.
== END 2023-11-20 08:59 | disposition home or self-care (01) ==
PROVIDERS: PCP Family Medicine; Visit Provider Surgery
DX: N63.20 Unspecified lump in the left breast, unspecified quadrant (principal); R92.8 Other abnormal and inconclusive findings on diagnostic imaging of breast
CPT/HCPCS: 76642

== ENCOUNTER 2024-12-04 12:24 | Emergency (ER) | payer MEDICARE, SELFPAY ==
--- OUTSIDE RECORDS SUMMARY | 2000-11-22 06:00 | XMS_ITS | Continuity of Care Document ---
Author Organization [facility] Address [address] [place] [address] Phone Care Team Providers Care Production Tool Engineer Name Role Phone Allyn Henderson Unavailable Unavailable Advance Directives Directive Yes / No Effective Date File Name No Information Encounters Encounter Description Practice Location Reason(s) For Visit Diagnoses Date Provider Providers Copied on Encounter [facility], [id number] [place] [address] [address], [place], [place], [id number], [place] tel:[phone] [address] [facility] No Information [address] Beatriz Gruber. [address] [facility] , [address], [place], [address], [place]. tel:[phone] Family History Family Member Type Diagnosis Age At Onset No Information Payers Payer name Insurance type Covered green party ID Authoriza tion(s) No Information Social History [...]
[2024-12-04] VITALS (7 sets, daily range): BP systolic 160–176; BP diastolic 69–90; PULSE 62–88; RESP 17–21; TEMP 36.1–36.4; O2SAT 97–100
--- NOTE | ~2024-12-04 | CT_ITS ---
EXAMINATION: CT brain wo madeleine, 12/04/2024 15:10 CDT HISTORY: dizziness COMPARISON: No comparisons available. Technique: Axial images obtained of the brain without contrast. One or more of the following dose reduction techniques were used: automated exposure control, adjustment of the mA and/or kV according to patient size, use of iterative reconstruction technique. Findings: No acute infarct or parenchymal hemorrhage. No abnormal mass or mass effect. No midline shift. No extra-axial fluid collections. No hydrocephalus. Mastoid air cells unremarkable. Sinuses and orbits unremarkable. No acute fracture. No significant facial or scalp soft tissue swelling evident. No radiopaque foreign body is seen. Impression: 1.No acute intracranial abnormality. Reviewed, dictated and finalized at location P. Impression: 1.No acute intracranial abnormality.
--- NOTE | ~2024-12-04 | XR_ITS ---
EXAMINATION: XR chest 2V, 12/04/2024 15:23 CDT HISTORY: dyspnea COMPARISON: No comparisons available. Technique: 2 views obtained. Findings: The lungs are clear, no effusion. No pneumothorax. Heart is normal size. Mediastinal and hilar contours are within normal limits. Bony thorax no acute abnormality. Impression: No acute cardiopulmonary abnormality. Reviewed, dictated and finalized at location P. Impression: No acute cardiopulmonary abnormality.
--- NOTE | 2024-12-04 14:51 | ECG_ITS ---
Test Date: 2024-12-04 15:07:51 Measurements Intervals [place] Rate: 64 P: 16 CO: 183 QRS: -16 QRSD: 83 T: 6 QT: 401 QTc: 415 Interpretive Statements SINUS RHYTHM MODERATE VOLTAGE CRITERIA FOR LVH, CONSIDER NORMAL VARIANT [MEETS CRITERIA IN ONE OF: R(aVL), S(V1), R(V5), R(V5/V6)+S(V1)] No previous ECG available for comparison Electronically Signed On 12-04-2024 15:22:46 CDT by Janki Villalobos M.D.
--- NOTE | 2024-12-04 15:17 | PC.NURSE ---
Pt to CT on portable monitor via stretcher at this time
[2024-12-04 15:23] LABS: Hematocrit 40.3 % (37.0-47.0); Hemoglobin 13.1 g/dL (12.0-15.0); Immature Granulocyte Percent A 0.2 % (0-0.5); Lymphocytes Absolute Auto 2.13 K/mm3 (0.9-3.2); Mean Corpuscular HGB Conc 32.5 g/dl (32-36); Mean Corpuscular Hemoglobin 26.5 pg (26-34); Mean Corpuscular Volume 81.6 fl (80-100); Nucleated Red Blood Cells Absolute Auto 0.000 K/mm3 (0.0-0.012); Nucleated Red Blood Cells Perc 0.0 % (0.0-0.2); Platelet Count Result 251 k/mm3 (150-375); Red Blood Count 4.94 M/mm3 (4.2-5.4); White Blood Count 4.9 K/mm3 (4.5-10.0)
[2024-12-04 15:33] LABS: Alanine Aminotransferase 11 U/L (6-35); Albumin Level 3.8 g/dL (3.5-5.1); Alkaline Phosphatase 57 U/L (38-126); Anion Gap 3 mmol/L (4-12); Aspartate Amino Transferase 15 U/L (14-36); Bilirubin,Total 0.3 mg/dL (0.2-1.3); Blood Urea Nitrogen 17 mg/dL (7-17); Calcium 8.9 mg/dL (8.4-10.2); Carbon Dioxide 24 mmol/L (22-30); Chloride 111 mmol/L (98-107); Estimated CRCL calculation 58 ml/min; Estimated Glomerular Filt Rate > 60; Glucose 96 mg/dL (65-110); Magnesium 2.1 mg/dL (1.6-2.3); Potassium 4.0 mmol/L (3.4-5.0); Sodium 138 mmol/L (137-145); Total Protein 6.5 g/dL (6.3-8.2)
[2024-12-04 15:45] LABS: NT Pro B Type Natriuretic Pept 42 pg/mL (19.9-100); Troponin I < 0.012 ng/mL (0.000-0.034)
--- NOTE | 2024-12-04 16:09 | ED.GENADULT ---
HPI - General Adult General Chief complaint: Dizziness Stated complaint: dizziness, CHAKRABORTY, nausea Time Seen by Provider: 12/04/24 14:41 History of Present Illness HPI narrative: Bethany Carnes is a 79-year-old female who presents today with complaints of having 3 does days of headache, intermittently feeling off balance with some nausea no vision changes no numbness tingling. Denies chest pain, denies shortness of breath. Related Data Home Medications ?Medication ?Instructions ?Recorded ?Confirmed ?Last Taken ?Type aspirin 325 mg tablet 325 mg PO DAILY 05/16/21 07/29/24 Unknown History multivitamin (Multiple Vitamins 1 tablet PO DAILY 08/22/21 07/29/24 Unknown History tablet) Allergies Allergy/AdvReac Type Severity Reaction Status Date / Time No Known Allergies Allergy Unknown Verified 12/04/24 15:00 Review of Systems Review of Systems: All systems reviewed & are unremarkable except as noted in HPI and below PMFSH Past Medical History Medical History GERD without esophagitis Tubular adenoma of colon (~12/2022) Pre-diabetes Vitamin B12 deficiency Venous thromboembolism (VTE) (~2017) LLE DVT in August 2019 and PE in 2018 Sleep apnea DVT (deep venous thrombosis) (~2019) Hyperlipidemia Hx of pulmonary embolus (~2017) Surgical History Surgical History History of hysterectomy 1974 History of cholecystectomy 1979 History of sleeve gastrectomy 2018 History of left knee replacement (~2008) Family History Family History Father Acute myocardial infarction, Onset Age: 80 Patient's father is Family history of cardiovascular disease, Onset Age: 81 Sibling Patient's sister is in good health Patient's brother is in good health Mother Family history of Alzheimer's disease, Onset Age: 90 Social History Social History Smoking status: Former smoker Second hand tobacco smoke exposure: No Alcohol intake: never Substance use: never Substance use type: does not use Lack of Transportation: No Lack of Food: Never True Current Housing: I Have Housing Concerned About Future Housing: No Difficulty Paying Gas/Electric Bills: No Difficulty Paying for Meds: No Currently Unemployed: No Education: High School Diploma/GED Difficulty w/ Childcare or Family Care: No Living arrangements: with family Additional living arrangements comments: Daughter Occupation/Education: retired Gender identity (if verbalized by the patient): Female Spiritual care concerns: No Agree to blood products: Yes Exam Narrative: GENERAL: Well-appearing, well-nourished, and in no acute distress. HEAD: Normocephalic, atraumatic. EYES: PERRLA and EOMI. ENT: Nares clear, no rhinorrhea or epistaxis. Mucous membranes moist. Oropharynx without tonsillar hypertrophy exudate or other lesions. NECK: Supple. No adenopathy or masses. No carotid bruits or JVD CHEST: Clear to auscultation. No respiratory distress. No wheezes rales or rhonchi HEART: Regular rate and rhythm. No murmur heard. Normal peripheral pulses. ABDOMEN: Soft, nontender, nondistended, normal active bowel sounds. EXTREMITIES: Normal range of motion. Trace edema SKIN: Warm, dry, no rash. NEURO: No focal deficits. Alert and oriented x3. PSYCH: Normal mood and affect. Course Vital Signs Vital signs: Vital Signs Temperature 36.1 C L 12/04/24 12:25 Pulse Rate 88 12/04/24 12:25 Respiratory Rate 18 12/04/24 12:25 Blood Pressure 176/69 H 12/04/24 12:25 Pulse Oximetry 100 12/04/24 12:25 Oxygen Delivery Room Air 12/04/24 12:25 Temperature 36.4 C L 12/04/24 14:50 Pulse Rate 65 12/04/24 16:49 Respiratory Rate 17 12/04/24 16:49 Blood Pressure 160/88 H 12/04/24 16:49 Pulse Oximetry 99 12/04/24 16:49 Oxygen Delivery Room Air 12/04/24 14:58 Medical Decision Making MDM Narrative Medical decision making narrative: 79-year-old female with no significant past medical history states that she only takes a baby aspirin daily who presents with complaints of having some headaches, intermittent lightheadedness, but comes on with some nausea feeling. On exam there is no acute neuro deficits noted. Lung sounds are clear throughout denies having any abdominal pain or changes to urine denies changes to bowel movements. States she drinks just going. Concern for : cardiac arrhythmia, electrolyte imbalance, brain bleed, CVA, anemia, cardiac ischemia, UTI Workup here is quite unremarkable cbc shows no leukocytosis, hemodynamically stable CMP unremarkable troponin is negative EKG sinus BNP negative urinalysis does show an acute urinary tract infection, and her blood pressure since she has been here has been running pretty consistently on 160 systolic which is more elevated than her previous reading. I reached out to her primary care doctor an discussed her case with him but we have done so far there is anything else you with concern for checking while she here she and regarding her elevated blood pressure while here. He recommends starting her on lisinopril 5 mg once daily with strict precautions not to take her medication if her blood pressure systolic is less than 130 and treating her urinary tract infection and he will follow up with her in his office next week. I updated patient on what her PCP said she feels comfortable with this hernia denies having anything further at this time. Medical Records Medical records reviewed: Yes I reviewed the external patient's medical records. Vital Signs Vital Signs: Vital Signs Temperature 36.1 C L 12/04/24 12:25 Pulse Rate 88 12/04/24 12:25 Respiratory Rate 18 12/04/24 12:25 Blood Pressure 176/69 H 12/04/24 12:25 Pulse Oximetry 100 12/04/24 12:25 Oxygen Delivery Room Air 12/04/24 12:25 Temperature 36.4 C L 12/04/24 14:50 Pulse Rate 65 12/04/24 16:49 Respiratory Rate 17 12/04/24 16:49 Blood Pressure 160/88 H 12/04/24 16:49 Pulse Oximetry 99 12/04/24 16:49 Oxygen Delivery Room Air 12/04/24 14:58 Vital signs reviewed by me Lab Data Lab results reviewed: Yes I reviewed the patient's lab results. 12/04/24 15:16 12/04/24 15:16 Labs: Lab Results 12/04/24 12/04/24 Range/Units 15:16 16:44 WBC 4.9 (4.5-10.0) K/mm3 RBC 4.94 (4.2-5.4) M/mm3 Hgb 13.1 (12.0-15.0) g/dL Hct 40.3 (37.0-47.0) % MCV 81.6 (80-100) fl MCH 26.5 (26-34) pg MCHC 32.5 (32-36) g/dl RDW 14.1 (11.5-14.5) % Plt Count 251 (150-375) k/mm3 MPV 9.6 (7.4-10.4) fl Immature Gran % (Auto) 0.2 (0-0.5) % Neut % (Auto) 40.7 L (45.5-73.1) % Lymph % (Auto) 43.9 (18.3-44.2) % [place] % (Auto) 10.3 H (2.6-8.5) % Eos % (Auto) 4.1 (0-4.4) % Baso % (Auto) 0.8 (0.2-1.2) % Lymph # (Auto) 2.13 (0.9-3.2) K/mm3 [place] # (Auto) 0.5 (0.1-0.6) K/mm3 Eos # (Auto) 0.2 (0-0.3) K/mm3 Baso # (Auto) 0.0 (0.0-0.1) K/mm3 Abs Immat Gran (auto) 0.01 (0.00-0.031) K/mm3 Absolute Neuts (auto) 2.0 (1.3-6.7) K/mm3 Absolute Nucleated RBC 0.000 (0.0-0.012) K/mm3 Nucleated RBC % 0.0 (0.0-0.2) % Sodium 138 (137-145) mmol/L Potassium 4.0 (3.4-5.0) mmol/L Chloride 111 H (98-107) mmol/L Carbon Dioxide 24 (22-30) mmol/L Anion Gap 3 L (4-12) mmol/L BUN 17 (7-17) mg/dL Creatinine 0.87 (0.7-1.0) mg/dL Estim Creat Clear Calc 58 ml/min Estimated GFR > 60 (59 - ) Glucose 96 (65-110) mg/dL Calcium 8.9 (8.4-10.2) mg/dL Magnesium 2.1 (1.6-2.3) mg/dL Total Bilirubin 0.3 (0.2-1.3) mg/dL AST 15 (14-36) U/L ALT 11 (6-35) U/L Alkaline Phosphatase 57 (38-126) U/L Troponin I < 0.012 (0.000-0.034) ng/mL NT-Pro-B Natriuret Pep 42 (19.9-100) pg/mL Total Protein 6.5 (6.3-8.2) g/dL Albumin 3.8 (3.5-5.1) g/dL Urine Color Yellow (Yellow) Urine Appearance Clear (Clear) Urine pH 6.5 (5.0-9.0) Ur Specific [place] 1.013 (1.001-1.035) Urine Protein Negative (Negative) mg/dL Urine Glucose (UA) Negative (Negative) mg/dL Urine Ketones Negative (Negative) mg/dL Ur Blood (Man) Negative (Negative) Urine Nitrate Negative (Negative) Urine Bilirubin Negative (Negative) Urine Urobilinogen 0.2 (<2.0) mg/dL Leukocyte Esterase Rfl 2+ H (Negative) IGOR/UL Urine RBC 0-2 (0-2) /hpf Urine WBC 11-20 H (0-3) /hpf Ur Squamous Epith Cells None seen (Few) /hpf Urine Bacteria None seen /hpf Urine Casts 0-2 Imaging Data Radiologist's impression: Impressions Head CT 12/04/24 15:24 Impression: 1.No acute intracranial abnormality. Chest X-Ray 12/04/24 15:39 Impression: No acute cardiopulmonary abnormality. ECG Data EKG #1: ECG completion date: 12/04/24 ECG completion time: 15:07 Interpretation: Rate 64 SC 183 QRSd 83 QT 401 QTc 415 --Eola-- P 16 QRS -16 T 6 SINUS RHYTHM MODERATE VOLTAGE CRITERIA FOR LVH, CONSIDER NORMAL VARIANT Discharge Plan Discharge Clinical Impression: Elevated blood pressure reading Urinary tract infection Qualifiers: Urinary tract infection type: acute cystitis Hematuria presence: without hematuria Qualified Code(s): N30.00 - Acute cystitis without hematuria Patient Disposition: Home Condition: Stable Instructions: Antibiotic Form Additional Instructions: Continue to take the Macrobid twice a day for 5 days. Make sure getting plenty of hydration drinking plenty of fluids. Start taking the lisinopril for blood pressure once daily checking blood pressure prior to taking it. If the top number is below 130 hold her blood pressure medication. Keep a log of these numbers of her blood pressure intake with you to your primary care appointment. Your primary care doctor says he will follow-up with you next week and do another blood pressure check. If he develops any new or worsening symptoms such as chest pain, shortness of breath difficulty breathing, numbness, tingling as always return to the emergency department. Patient Language: Swedish Prescriptions: New nitrofurantoin monohyd/m-cryst [Macrobid] 100 mg capsule 100 mg PO Q12H 5 Days Qty: 10 0RF Rx Instructions: must administer with a meal/food lisinopril 5 mg tablet 5 mg PO DAILY Qty: 30 1RF No Action aspirin 325 mg tablet 325 mg PO DAILY multivitamin [Multiple Vitamins] Tablet 1 tablet PO DAILY naproxen 250 mg tablet 250 mg PO BID Qty: 60 1RF hydrocodone-acetaminophen 5-325 mg tablet 1 tablet PO QHS PRN (Reason: pain) Qty: 30 0RF cholecalciferol (vitamin D3) 50 mcg (2,000 unit) tablet 50 mcg PO DAILY Qty: 90 2RF fluticasone propionate [Flonase Allergy Relief] 50 mcg/actuation spray,suspension 2 spray intranasal DAILY Qty: 16 0RF Rx Instructions: administer into each nostril triamcinolone acetonide 0.1 % cream 1 applic topical BID Qty: 30 0RF oxybutynin chloride 5 mg tablet extended release 24hr 5 mg PO DAILY Qty: 90 1RF Follow-up/Referrals: Dick Hernandez MD [Primary Care Provider, Family Practice] - 1 Week Time of Disposition: 17:14
[2024-12-04 16:57] LABS: Add Urine Microscopic? YES; Appearance Urine Clear (Clear); Glucose Urine UA Negative (Negative); Leukocyte Esterase Ur 2+ LEU/UL (Negative); Nitrate Urine Negative (Negative); Non Pathogenic Casts 0-2; Specific Grav Ur 1.013 (1.001-1.035)
--- OUTSIDE RECORDS SUMMARY | 2024-12-04 17:16 | XMS_ITS | Clinical Summary ---
Author Organization [facility] [address] Address [address] [place] [id number] Care Team Providers Care Wire Galvanizer Name Role Phone Lorraine Hernandez MD Primary Care Provider Allergies Active Allergy Reactions Criticality Noted Date Comments Other Other (See comments) Low 07/10/2021 Reaction: Medications aspirin 325 mg tablet Take 325 mg by mouth daily Active Active Problems No known active problems Social History Tobacco Use Types Packs/Day Years Used Date Smoking Tobacco: Former Cigarettes Q uit: 07/10/1961 Personal Safety Answer Date Recorded Getting School Help Needed Not on file 05/06 Comments Unknown Sex and Gender Information Value Date Recorded Sex Assigned at Not on file 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 Gender Identity Not on file Sexual Orientation Not on file Obstetrics History Last Filed Vital Signs Vital Sign Reading Time Taken Comments Blood Pressure 128/88 07/10/2021 12:27 PM CDT Pulse 82 07/10/2021 12:27 PM CDT Temperature 36.6 C (97.9 F) 07/10/2021 12:27 PM CDT Respiratory Rate - - Oxygen Saturation 95% 07/10/2021 12:27 PM CDT Inhaled Oxygen Concentration - - Weight 92.5 kg (204 lb) 07/10/2021 12:27 PM CDT Height 180 cm (5' 10.87) 07/10/2021 12:27 PM CD T Body Mass Index 28.56 07/10/2021 12:27 PM CDT Plan of Treatment Health Maintenance Due Date Last Done Comments Depression Screening 1945 Fall Risk Assessment 1945 Hepatitis C Screening 1945 Osteoporosis Screening-Bone Density Scan 1945 Hepatitis B Screening 06/27/1965 Zoster Vaccine (2 of 3) 03/21/2012 01/25/2012 Well Visit 65+ 06/27/2012 Pneumococcal vaccine 65+ (2 of 2 - PCV20 or PCV21) 12/11/2016 12/12/2015 DTaP/Tdap/Td Vaccine (2 - Td or Tdap) 01/24/2022 01/25/2012 Covid-19 Vaccine (4 - 2024-2 6 season) 2024 01/21/2021, 05/31/2020, 05/03/2020 Influenza Vaccine (#1) 2024 , 12/25/2019, 04/19/2019, Additional history exists [place] [address] Care Teams Wire Galvanizer Relationship Specialty Start Date End Date Lorraine Hernandez MD PCP - General Family Practice 07/10/21
--- OUTSIDE RECORDS SUMMARY | 2024-12-04 17:16 | XMS_ITS | Clinical Summary ---
Author Organization [facility] Deandra abdalla [facility] Address [address] [place] [address] Care Team Providers Care Wet Cotton Feeder Name Role Phone Tod Aidee ZOHRA Primary Care Provider [phone] Allergies No known active allergies Medications rivaroxaban (Xarelto) 10 mg TabletIndications:Se condary hypercoagulable state Take 1 Tablet (10 mg) by mouth daily with supper. 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 Gender Identity Not on file Sexual Orientation Not on file Last Filed Vital Signs Vital Sign Reading Time Taken Comments Blood Pressure 153/84 08/11/2020 8:33 AM CDT Pulse 64 08/11/2020 8:33 AM CDT Temperature 36.6 C (97.9 F) 08/11/2020 8:33 AM CDT Respiratory Rate - - Oxygen Saturation 99% 08/11/2020 8:33 AM CDT Inhaled Oxygen Concentration - - Weight 95.6 kg (210 lb 12.8 oz) 08/11/2020 8:33 AM CDT Height 180.3 cm (5' 11) 08/11/2020 8:33 AM CDT Body Mass Index 29.4 08/11/2020 8:33 AM CDT Plan of Treatment Health Maintenance Due Date Last Done Comments DTAP/TDAP/TD VACCINES (1 - Tdap) 06/27/1966 PNEUMOCOCCAL VACCINE 50+ YEARS (1 of 1 - PCV) 06/27/18 98 ZOSTER VACCINE (1 of 2) 06/27/1997 OSTEOPOROSIS SCREENING 06/27/2012 RSV VACCINE (60+ or ) (1 - 1-dose 75+ series) 06/27/2022 INFLUENZA VACCINE (#1) 2024 12/27/2019 Care Teams Wet Cotton Feeder Relationship Specialty Start Date End Date Aidee Baron FNP [address] [place] [address] [phone] PCP - General Nurse Practitioner Family 01/15/20
--- OUTSIDE RECORDS SUMMARY | 2024-12-04 17:16 | XMS_ITS | Clinical Summary ---
Author Organization [email or web address] Address [address] [place] [address] Care Team Providers Care Anatomic Pathology Manager Name Role Phone Unavailable Primary Care Provider Unavailabl e Source Comments [email or web address],non-owned Affiliates and Associated Physician Practices is amultiple site organization consisting of ambulatory clinics and hospital sitesin [place], [place], [place] and [place]. This disclosure is being madepursuant to the Care Everywhere program and may not contain all information available regarding this patient. Last updated 17.[email or web address] Allergies No known active allergies Immunizations Immunization Administration Dates Next Due INFLUENZA VACCINE, HIGH-DOSE , QUADR. 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 Gender Identity Not on file Sexual Orientation Not on file Plan of Treatment Health Maintenance Due Date Last Done Comments BONE DENSITY TESTING 1945 HEPATITIS C SCREENING 06/23/1965 DTAP/TDAP/TD VACCINES (1 - Tdap) 06/27/1966 PNEUMOCOCCAL VACCINE 50+ (1 of 1 - PCV) 06/27/1997 ZOSTER VACCINE (1 of 2) 06/27/1997 Respiratory Syncytial Virus (RSV) Vaccine Pt: or over 60 yrs (1 - 1-dose 75+ series) 06/27/2022 DEPRESSION SCREENING 03/12/2024 MEDICARE AWV CALENDAR YEAR 2024 COVID-19 VACCINE ( - 2023-2 5 season) 2024 INFLUENZA VACCINE (#1) 2024 12/27/2017 HEPATITIS B VACCINE Aged Out No longe r eligible based on patient's age to complete this topic HIB VACCINE Aged Out No longer eligi ble based on patient's age to complete this topic HPV VACCINE Aged Out No longer eligi ble based on patient's age to complete this topic MENINGOCOCCAL (Group B) VACC INE SHARED DECISION-MAKING Aged Out No longer eligibl e based on patient's age to complete this topic MENINGOCOCCAL GROUPS A/C/Y/W VACCINE Aged Out No longer eligible b ased on patient's age to complete this topic Insurance [facility] MANAGED MEDICARE [place] [id number]
[2024-12-04] MEDS: NITROFURANTOIN MONOHYD MACROCR 100 MG CAP PO (17:22)
== END 2024-12-04 17:40 | disposition home or self-care (01) ==
PROVIDERS: Emergency Provider Nurse Practitioner Family; PCP Family Medicine
DX: N30.00 Acute cystitis without hematuria (principal); R03.0 Elevated blood-pressure reading, without diagnosis of hypertension
CPT/HCPCS: 36415; 70450; 71046; 80053; 81001; 83735; 83880; 84484; 85025; 87086; 93005; 99284; A9270

== ENCOUNTER 2024-12-12 10:30 | Outpatient (NON) | payer MEDICARE, SELFPAY ==
--- OUTSIDE RECORDS SUMMARY | 2000-11-22 06:00 | XMS_ITS | Continuity of Care Document ---
Author Organization [facility] Address [address] [place] [address] Phone Care Team Providers Care Therapist Speech Name Role Phone Allyn Henderson Unavailable Unavailable Advance Directives Directive Yes / No Effective Date File Name No Information Encounters Encounter Description Practice Location Reason(s) For Visit Diagnoses Date Provider Providers Copied on Encounter [facility], [id number] [place] [address] [address], [place], [place], [id number], [place] tel:[phone] [address] [facility] No Information [address] Beatriz Gruber. [address] [facility] , [address], [place], [address], [place]. tel:[phone] Family History Family Member Type Diagnosis Age At Onset No Information Payers Payer name Insurance type Covered democrat ID Authoriza tion(s) No Information Social History [...]
--- OUTSIDE RECORDS SUMMARY | 2024-12-12 10:39 | XMS_ITS | Clinical Summary ---
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
--- OUTSIDE RECORDS SUMMARY | 2024-12-12 10:39 | XMS_ITS | Clinical Summary ---
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
--- OUTSIDE RECORDS SUMMARY | 2024-12-12 10:39 | XMS_ITS | Clinical Summary ---
Author Organization [facility] Address [address] [place] [address] Care Team Providers Care Montessori Lead Teacher Name Role Phone Unavailable Primary Care Provider Unavailabl e Source Comments [facility],non-owned Affiliates and Associated Physician Practices is amultiple site organization consisting of ambulatory clinics and hospital sitesin [place], [place], [place] and [place]. This disclosure is being madepursuant to the Care Everywhere program and may not contain all information available regarding this patient. Last updated 17.[employer] [facility] Allergies No known active allergies Immunizations Immunization Administration Dates Next Due INFLUENZA VACCINE, HIGH-DOSE , QUADR. 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 MANAGED MEDICARE [place] [id number]
[2024-12-12 13:00] LABS: Add Urine Microscopic? YES; Appearance Urine Clear (Clear); Glucose Urine UA Negative (Negative); Leukocyte Esterase Ur 2+ LEU/UL (Negative); Nitrate Urine Negative (Negative); Non Pathogenic Casts 0-2; Specific Grav Ur 1.013 (1.001-1.035)
== END 2024-12-12 10:31 | disposition home or self-care (01) ==
LOC: ANHGOSHLAB 10:31
PROVIDERS: PCP Family Medicine; Visit Provider Nurse Practitioner Family
DX: R32 Unspecified urinary incontinence (principal)
CPT/HCPCS: 81001; 87086

== ENCOUNTER 2024-12-20 08:41 | Emergency (ER) | payer MEDICARE, SELFPAY ==
[2024-12-20 08:42] VITALS: BP 157/80; PULSE 70; RESP 14; TEMP 36.9; O2SAT 100
--- OUTSIDE RECORDS SUMMARY | 2024-12-20 08:43 | XMS_ITS | Clinical Summary ---
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
--- OUTSIDE RECORDS SUMMARY | 2024-12-20 08:43 | XMS_ITS | Clinical Summary ---
Author Organization [facility] Address [address] [place] [address] Care Team Providers Care Nursing Department Chairperson Name Role Phone Unavailable Primary Care Provider Unavailabl e Source Comments [facility],non-owned Affiliates and Associated Physician Practices is amultiple site organization consisting of ambulatory clinics and hospital sitesin [place], [place], [place] and [place]. This disclosure is being madepursuant to the Care Everywhere program and may not contain all information available regarding this patient. Last updated 17.[facility] Allergies No known active allergies Immunizations Immunization Administration Dates Next Due INFLUENZA VACCINE, HIGH-DOSE , QUADR. 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 MANAGED MEDICARE [place] [id number]
[2024-12-20 11:42] VITALS: BP 165/77; PULSE 67; RESP 18; O2SAT 100
--- OUTSIDE RECORDS SUMMARY | 2024-12-20 11:57 | XMS_ITS | Clinical Summary ---
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
--- OUTSIDE RECORDS SUMMARY | 2024-12-20 11:57 | XMS_ITS | Clinical Summary ---
Author Organization [facility] [employer] Address [address] [place] [address] Care Team Providers Care Ground Wirer Name Role Phone Unavailable Primary Care Provider Unavailabl e Source Comments [facility] [employer],non-owned Affiliates and Associated Physician Practices is amultiple site organization consisting of ambulatory clinics and hospital sitesin [place], [place], [place] and [place]. This disclosure is being madepursuant to the Care Everywhere program and may not contain all information available regarding this patient. Last updated 17.[employer] Allergies No known active allergies Immunizations Immunization Administration Dates Next Due INFLUENZA VACCINE, HIGH-DOSE , QUADR. 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
--- OUTSIDE RECORDS SUMMARY | 2024-12-20 11:57 | XMS_ITS | Clinical Summary ---
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
[2024-12-20 12:03] VITALS: BP 186/74; PULSE 55; RESP 13; TEMP 36.6; O2SAT 100
[2024-12-20 13:10] LABS: Hematocrit 42.0 % (37.0-47.0); Hemoglobin 13.5 g/dL (12.0-15.0); Immature Granulocyte Percent A 0.2 % (0-0.5); Lymphocytes Absolute Auto 1.71 K/mm3 (0.9-3.2); Mean Corpuscular HGB Conc 32.1 g/dl (32-36); Mean Corpuscular Hemoglobin 26.5 pg (26-34); Mean Corpuscular Volume 82.4 fl (80-100); Nucleated Red Blood Cells Absolute Auto 0.000 K/mm3 (0.0-0.012); Nucleated Red Blood Cells Perc 0.0 % (0.0-0.2); Platelet Count Result 290 k/mm3 (150-375); Red Blood Count 5.10 M/mm3 (4.2-5.4); White Blood Count 4.2 K/mm3 (4.5-10.0)
[2024-12-20 13:23] LABS: Alanine Aminotransferase 12 U/L (6-35); Albumin Level 4.0 g/dL (3.5-5.1); Alkaline Phosphatase 67 U/L (38-126); Anion Gap 7 mmol/L (4-12); Aspartate Amino Transferase 16 U/L (14-36); Bilirubin,Total 0.8 mg/dL (0.2-1.3); Blood Urea Nitrogen 12 mg/dL (7-17); Calcium 9.2 mg/dL (8.4-10.2); Carbon Dioxide 26 mmol/L (22-30); Chloride 108 mmol/L (98-107); Estimated CRCL calculation 67 ml/min; Estimated Glomerular Filt Rate > 60; Glucose 90 mg/dL (65-110); Potassium 3.7 mmol/L (3.4-5.0); Sodium 141 mmol/L (137-145); Total Protein 7.2 g/dL (6.3-8.2)
[2024-12-20] MEDS: METOCLOPRAMIDE HCL INJ 10 MG/2 ML VIAL IV PUSH (13:28)
[2024-12-20] MEDS: diazePAM INJ (*CRX) 10 MG/2 ML SYRINGE 2.5 MG IV PUSH (13:29)
[2024-12-20 14:20] VITALS: BP 150/83
[2024-12-20 14:45] VITALS: BP 146/88; PULSE 69; RESP 19; O2SAT 100
--- NOTE | 2024-12-20 15:36 | ED.DIZZY ---
HPI - Dizziness General Chief Complaint: Dizziness Stated Complaint: dizzy, headache, nausea Time Seen by Provider: 12/20/24 11:50 History of Present Illness HPI Narrative: Patient presents with few days of dizziness, with nausea, much worse when she tries to get up or stand. Has had similar symptoms in the past when the last month and had head CT scan that was within acceptable limits. Noticed this made her blood pressure go up, she has been started on a blood pressure medication from the last time she was here. Related Data Home Medications ?Medication ?Instructions ?Recorded ?Confirmed ?Last Taken ?Type aspirin 325 mg tablet 325 mg PO DAILY 05/16/21 12/12/24 Unknown History multivitamin (Multiple Vitamins 1 tablet PO DAILY 08/22/21 12/12/24 Unknown History tablet) naproxen 250 mg tablet 250 mg PO BID PRN right shoulder 12/12/24 12/12/24 Unknown History Allergies Allergy/AdvReac Type Severity Reaction Status Date / Time No Known Allergies Allergy Unknown Verified 12/20/24 12:05 Review of Systems Review of Systems: All systems reviewed & are unremarkable except as noted in HPI and below PMFSH Past Medical History Medical History GERD without esophagitis Tubular adenoma of colon (~12/2022) Pre-diabetes Vitamin B12 deficiency Venous thromboembolism (VTE) (~2017) LLE DVT in August 2019 and PE in 2017 Sleep apnea DVT (deep venous thrombosis) (~2019) Hyperlipidemia Hx of pulmonary embolus (~2017) Surgical History Surgical History History of hysterectomy 1974 History of cholecystectomy 1979 History of sleeve gastrectomy 2018 History of left knee replacement (~2008) Family History Family History Father Acute myocardial infarction, Onset Age: 80 Patient's father is Family history of cardiovascular disease, Onset Age: 81 Sibling Patient's sister is in good health Patient's brother is in good health Mother Family history of Alzheimer's disease, Onset Age: 90 Social History Social History Smoking status: Former smoker Second hand tobacco smoke exposure: No Alcohol intake: never Substance use: never Substance use type: does not use Lack of Transportation: No Lack of Food: Never True Current Housing: I Have Housing Concerned About Future Housing: No Difficulty Paying Gas/Electric Bills: No Difficulty Paying for Meds: No Currently Unemployed: No Education: High School Diploma/GED Difficulty w/ Childcare or Family Care: No Living arrangements: with family Additional living arrangements comments: Daughter Occupation/Education: retired Gender identity (if verbalized by the patient): Female Spiritual care concerns: No Agree to blood products: Yes Exam Narrative: EXAMINATION OF ORGAN SYSTEMS/BODY AREAS: Constitutional: Vital signs per nursing GENERAL: Appears slightly uncomfortable HEAD: Normal with no signs of head trauma. EYES: EOMI, conjunctiva normal, PERRL ENT: Hearing grossly intact LUNGS: Nonlabored breathing. HEART: [Regular rate and rhythm] ABD: [Soft], [nontender to palpation] EXT: Normal range of motion SKIN: [No rashes or lesions.] NEURO: [Alert and oriented x 3. No gross focal sensory or strength deficits.] Clear speech PSYCH: Normal affect Course Vital Signs Vital signs: Vital Signs Temperature 98.4 F 12/20/24 08:42 Pulse Rate 70 12/20/24 08:42 Respiratory Rate 14 12/20/24 08:42 Blood Pressure 157/80 H 12/20/24 08:42 Pulse Oximetry 100 12/20/24 08:42 Oxygen Delivery Room Air 12/20/24 08:42 Temperature 97.8 F 12/20/24 12:03 Pulse Rate 69 12/20/24 14:45 Respiratory Rate 19 12/20/24 14:45 Blood Pressure 146/88 H 12/20/24 14:45 Pulse Oximetry 100 12/20/24 14:45 Oxygen Delivery Room Air 12/20/24 12:03 MDM - Dizziness MDM Narrative Medical decision making narrative: 79F presents to the emergency department for headache with nausea, vertigo. No focal neurological or cranial nerve deficits on exam. No meningeal signs. The headache was gradual in onset, it is not exertional and does not appear consistent with subarachnoid hemorrhage or intracranial bleeding. No trauma. I did note she came in for similar presentation within the past month, with normal workup including a CT brain. Given this I will not be repeating imaging at this time with shared decision making with patient and family at bedside. She does have hypertension right now but I suspect this may be from the discomfort, I will wait to give antihypertensives until after treatment of her symptoms. Patient is given headache cocktail including Reglan, Benadryl; for the vertigo I did order some Valium. Labs within acceptable limits. On reevaluation, the patient feels significantly better with the headache and vertigo and nausea resolved. No neurological deficits. She is not able to stand up and ambulate with normal steady gait without the symptoms returning. Her blood pressure has improved without antihypertensives. Patient is comfortable going home for outpatient follow-up with primary care physician and/or neurology and provided with strict return precautions, especially for worsening headaches, neck pain/stiffness, fever or weakness, numbness/tingling or persistent vomiting. Lab Data 12/20/24 13:05 12/20/24 13:05 Labs: Lab Results 12/20/24 Range/Units 13:05 WBC 4.2 L (4.5-10.0) K/mm3 RBC 5.10 (4.2-5.4) M/mm3 Hgb 13.5 (12.0-15.0) g/dL Hct 42.0 (37.0-47.0) % MCV 82.4 (80-100) fl MCH 26.5 (26-34) pg MCHC 32.1 (32-36) g/dl RDW 14.0 (11.5-14.5) % Plt Count 290 (150-375) k/mm3 MPV 9.5 (7.4-10.4) fl Immature Gran % (Auto) 0.2 (0-0.5) % Neut % (Auto) 45.5 (45.5-73.1) % Lymph % (Auto) 40.4 (18.3-44.2) % Placer % (Auto) 9.5 H (2.6-8.5) % Eos % (Auto) 3.5 (0-4.4) % Baso % (Auto) 0.9 (0.2-1.2) % Lymph # (Auto) 1.71 (0.9-3.2) K/mm3 Placer # (Auto) 0.4 (0.1-0.6) K/mm3 Eos # (Auto) 0.2 (0-0.3) K/mm3 Baso # (Auto) 0.0 (0.0-0.1) K/mm3 Abs Immat Gran (auto) 0.01 (0.00-0.031) K/mm3 Absolute Neuts (auto) 1.9 (1.3-6.7) K/mm3 Absolute Nucleated RBC 0.000 (0.0-0.012) K/mm3 Nucleated RBC % 0.0 (0.0-0.2) % Sodium 141 (137-145) mmol/L Potassium 3.7 (3.4-5.0) mmol/L Chloride 108 H (98-107) mmol/L Carbon Dioxide 26 (22-30) mmol/L Anion Gap 7 (4-12) mmol/L BUN 12 D (7-17) mg/dL Creatinine 0.73 (0.7-1.0) mg/dL Estim Creat Clear Calc 67 ml/min Estimated GFR > 60 (59 - ) Glucose 90 (65-110) mg/dL Calcium 9.2 (8.4-10.2) mg/dL Total Bilirubin 0.8 (0.2-1.3) mg/dL AST 16 (14-36) U/L ALT 12 (6-35) U/L Alkaline Phosphatase 67 (38-126) U/L Total Protein 7.2 (6.3-8.2) g/dL Albumin 4.0 (3.5-5.1) g/dL Discharge Plan Discharge Clinical Impression: Vertigo, Nausea, Hypertension Patient Disposition: Home Condition: Stable Instructions: Hypertension (ED), Dizziness (ED) Additional Instructions: Please follow up with your doctor and with the neurologist; try the medications as prescribed. If your symptoms return, especially if you start having any severe headache, dizziness, difficulty with speech or walking, chest pain or shortness of breath, come back to the ER. Patient Language: Maori Prescriptions: New ondansetron 4 mg tablet,disintegrating 4 mg PO Q8H PRN (Reason: nausea and vomiting) Qty: 10 0RF meclizine 25 mg tablet 25 mg PO TID PRN (Reason: dizziness) Qty: 30 0RF No Action aspirin 325 mg tablet 325 mg PO DAILY multivitamin [Multiple Vitamins] Tablet 1 tablet PO DAILY naproxen 250 mg tablet 250 mg PO BID PRN (Reason: right shoulder ) hydrocodone-acetaminophen 5-325 mg tablet 1 tablet PO QHS PRN (Reason: pain) Qty: 30 0RF triamcinolone acetonide 0.1 % cream 1 applic topical BID Qty: 30 0RF lisinopril 5 mg tablet 5 mg PO DAILY Qty: 90 1RF cholecalciferol (vitamin D3) 50 mcg (2,000 unit) tablet 50 mcg PO DAILY Qty: 90 2RF fluticasone propionate [Flonase Allergy Relief] 50 mcg/actuation spray,suspension 2 spray intranasal DAILY Qty: 16 0RF Rx Instructions: administer into each nostril oxybutynin chloride 5 mg tablet extended release 24hr 5 mg PO DAILY Qty: 90 1RF Follow-up/Referrals: Dick Hernandez MD [Primary Care Provider, Family Practice] Cesilia Sepulveda MD [Physician, Neurology] - 2 Days
== END 2024-12-20 14:58 | disposition home or self-care (01) ==
PROVIDERS: Emergency Provider Emergency Medicine; PCP Family Medicine
DX: R42 Dizziness and giddiness (principal); I10 Essential (primary) hypertension; R11.0 Nausea; E53.8 Deficiency of other specified B group vitamins; E78.5 Hyperlipidemia, unspecified; K21.9 Gastro-esophageal reflux disease without esophagitis; G47.30 Sleep apnea, unspecified; Z98.84 Bariatric surgery status; Z96.652 Presence of left artificial knee joint; Z86.718 Personal history of other venous thrombosis and embolism; Z86.0101 Personal history of adenomatous and serrated colon polyps; Z86.711 Personal history of pulmonary embolism; Z87.891 Personal history of nicotine dependence; Z90.49 Acquired absence of other specified parts of digestive tract; Z90.710 Acquired absence of both cervix and uterus; Z79.899 Other long term (current) drug therapy; Z79.82 Long term (current) use of aspirin
CPT/HCPCS: 36415; 80053; 85025; 96374; 96375; 99284; J1200; J2765; J3360

== ENCOUNTER 2024-12-29 08:15 | Outpatient (CLI) | payer MEDICARE, SELFPAY ==
--- OUTSIDE RECORDS SUMMARY | 2024-12-29 08:27 | XMS_ITS | Clinical Summary ---
Author Organization [facility] [employer] Address [address] [place] [address] Care Team Providers Care Baton Twirler Name Role Phone Unavailable Primary Care Provider Unavailabl e Source Comments [facility] [employer],non-owned Affiliates and Associated Physician Practices is amultiple site organization consisting of ambulatory clinics and hospital sitesin [place], [place], [place] and [place]. This disclosure is being madepursuant to the Care Everywhere program and may not contain all information available regarding this patient. Last updated 17.[employer] Allergies No known active allergies Immunizations Immunization Administration Dates Next Due INFLUENZA VACCINE, HIGH-DOSE , QUADR. 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
--- OUTSIDE RECORDS SUMMARY | 2024-12-29 08:27 | XMS_ITS | Clinical Summary ---
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
--- OUTSIDE RECORDS SUMMARY | 2024-12-29 08:27 | XMS_ITS | Clinical Summary ---
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 MEDICARE Address: [facility] [address] [place] [address] Care Teams Acute Care Physical Therapist Relationship Specialty Start Date End Date Lorraine Hernandez MD PCP - General Family Practice 07/10/21
[2024-12-29 13:04] LABS: Alanine Aminotransferase 11 U/L (6-35); Albumin Level 3.9 g/dL (3.5-5.1); Alkaline Phosphatase 55 U/L (38-126); Anion Gap 6 mmol/L (4-12); Aspartate Amino Transferase 31 U/L (14-36); Bilirubin,Total 0.4 mg/dL (0.2-1.3); Blood Urea Nitrogen 13 mg/dL (7-17); Calcium 9.1 mg/dL (8.4-10.2); Carbon Dioxide 28 mmol/L (22-30); Chloride 107 mmol/L (98-107); Cholesterol 217 mg/dL (0-200); Estimated Glomerular Filt Rate > 60; Glucose 86 mg/dL (65-110); HDL Direct 36 mg/dL; Magnesium 2.2 mg/dL (1.6-2.3); Potassium 4.1 mmol/L (3.4-5.0); Sodium 141 mmol/L (137-145); Total Protein 6.8 g/dL (6.3-8.2); Triglycerides 71 mg/dL (<150)
[2024-12-29 13:17] LABS: Add Urine Microscopic? YES; Appearance Urine Clear (Clear); Glucose Urine UA Negative (Negative); Leukocyte Esterase Ur Trace LEU/UL (Negative); Nitrate Urine Negative (Negative); Non Pathogenic Casts 0-2; Specific Grav Ur 1.011 (1.001-1.035)
[2024-12-29 13:47] LABS: Hemoglobin A1C 5.4 % (<5.7)
[2024-12-29 13:58] LABS: Vitamin B12 247.0 pg/mL (239-931)
== END 2024-12-29 08:16 | disposition home or self-care (01) ==
LOC: ANHGOSHLAB 08:15
PROVIDERS: PCP Family Medicine; Visit Provider Nurse Practitioner Family
DX: E78.5 Hyperlipidemia, unspecified (principal); I10 Essential (primary) hypertension; R73.03 Prediabetes; E55.9 Vitamin D deficiency, unspecified; R20.2 Paresthesia of skin; R31.9 Hematuria, unspecified
CPT/HCPCS: 36415; 80053; 80061; 81001; 82306; 82607; 83036; 83735; 84207

== ENCOUNTER 2025-01-15 07:54 | Outpatient (CLI) | payer MEDICARE, SELFPAY ==
--- OUTSIDE RECORDS SUMMARY | 2000-11-22 05:00 | XMS_ITS | Continuity of Care Document ---
Author Organization [facility] Address [address] [place] [address] Phone Care Team Providers Care Spouter Name Role Phone Allyn Henderson Unavailable Unavailable Advance Directives Directive Yes / No Effective Date File Name No Information Encounters Encounter Description Practice Location Reason(s) For Visit Diagnoses Date Provider Providers Copied on Encounter [facility], [id number] [place] [address] [address], [place], [place], [id number], [place] tel:[phone] [facility] No Information 3-[address] Beatriz Gruber. [address] [facility] , [address], [place], [address], [place]. tel:[phone] Family History Family Member Type Diagnosis Age At Onset No Information Payers Payer name Insurance type Covered libertarian ID Authoriza tion(s) No Information Social History Type Description Quantity Date Captured Comments Sex Female Smoking Status No Information Chief Complaint And Reason For Visit No Information Reason For Referral Reason For Referral No Information History Of Present Illness Encounter Date Complaint History Of Prese nt Illness No Information Functional Status Date Functional Assessmen t No Information Instructions Date Instruction Additional Infor mation No Information Assessments Type Assessment Date No Information Patient Care Teams Name Effective Dates (start - stop) Status Members No Information
[2025-01-15 13:53] LABS: Thyroid Stimulating Hormone Reflex 1.730 uIU/mL (0.465-4.68)
--- OUTSIDE RECORDS SUMMARY | 2025-01-15 16:49 | XMS_ITS | Clinical Summary ---
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
--- OUTSIDE RECORDS SUMMARY | 2025-01-15 16:49 | XMS_ITS | Clinical Summary ---
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
--- OUTSIDE RECORDS SUMMARY | 2025-01-15 16:49 | XMS_ITS | Clinical Summary ---
Author Organization [facility] [employer] Address [address] [place] [address] Care Team Providers Care [employer] Sales Name Role Phone Unavailable Primary Care Provider Unavailabl e Source Comments [facility] [employer],non-owned Affiliates and Associated Physician Practices is amultiple site organization consisting of ambulatory clinics and hospital sitesin [place], [place], [place] and [place]. This disclosure is being madepursuant to the Care Everywhere program and may not contain all information available regarding this patient. Last updated 17.[employer] Allergies No known active allergies Immunizations Immunization Administration Dates Next Due INFLUENZA VACCINE, HIGH-DOSE , QUADR. 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
== END 2025-01-15 07:55 | disposition home or self-care (01) ==
PROVIDERS: PCP Family Medicine; Visit Provider Nurse Practitioner Family
DX: R73.03 Prediabetes (principal)
CPT/HCPCS: 36415; 84443

== ENCOUNTER 2025-02-27 11:09 | Outpatient (NON) | payer MEDICARE, SELFPAY ==
--- OUTSIDE RECORDS SUMMARY | 2025-02-27 11:42 | XMS_ITS | Clinical Summary ---
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
--- OUTSIDE RECORDS SUMMARY | 2025-02-27 11:42 | XMS_ITS | Clinical Summary ---
Author Organization [facility] [employer] Address [address] [place] [address] Care Team Providers Care Slagger Name Role Phone Unavailable Primary Care Provider Unavailabl e Source Comments [facility] [employer],non-owned Affiliates and Associated Physician Practices is amultiple site organization consisting of ambulatory clinics and hospital sitesin [place], [place], [place] and [place]. This disclosure is being madepursuant to the Care Everywhere program and may not contain all information available regarding this patient. Last updated 17.[employer] Allergies No known active allergies Immunizations Immunization Administration Dates Next Due INFLUENZA VACCINE, HIGH-DOSE , QUADR. 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
--- OUTSIDE RECORDS SUMMARY | 2025-02-27 11:42 | XMS_ITS | Clinical Summary ---
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
== END 2025-02-27 11:10 | disposition home or self-care (01) ==
PROVIDERS: PCP Family Medicine; Visit Provider Nurse Practitioner Family
DX: R42 Dizziness and giddiness (principal); R53.1 Weakness
CPT/HCPCS: 87086